=== PATIENT | female | born 1960 | race Caucasian/White ===

== ENCOUNTER 2024-02-17 18:05 | Observation (INO) | payer MEDICARE, SELFPAY ==
[2024-02-17 18:08] VITALS: BP 109/49; PULSE 72; RESP 16; TEMP 36.5; O2SAT 96; BMI 24.0
--- NOTE | 2024-02-17 18:15 | ECG_ITS ---
APPROVED REPORT Exam: Resting ECG HR:68 bpm ECG Measurements Heart Rate 68 AXES WY 150 P 60 QRSd 94 QRS 57 QT 462 T 57 QTc 480 Conclusion SINUS RHYTHM PROLONGED QT INTERVAL ABNORMAL ECG UNCONFIRMED REPORT Electronically signed by : Tashi Covington, 02/17/2024 23:27:57
--- NOTE | 2024-02-17 18:23 | XR_ITS ---
PROCEDURE INFORMATION: Exam: XR Chest Exam date and time: 02/17/2024 6:36 PM Age: 63 years old Clinical indication: Dyspnea TECHNIQUE: Imaging protocol: Radiologic exam of the chest. Views: 1 view. COMPARISON: No relevant prior studies available. FINDINGS: Lungs: Coarse interstitial lung markings likely chronic. Granulomatous changes. No consolidation. Pleural spaces: Unremarkable. No pleural effusion. No pneumothorax. Heart/Mediastinum: Unremarkable. No cardiomegaly. Bones/joints: Unremarkable. IMPRESSION: No acute findings.
[2024-02-17 18:26] VITALS: BP 109/59; PULSE 76; RESP 12; O2SAT 97
[2024-02-17 18:31] VITALS: BP 127/65; PULSE 72; RESP 15; O2SAT 96
--- NOTE | 2024-02-17 18:32 | HMH.EDGENADL ---
Discharge Plan Disposition Patient Disposition: Admitted Referrals Follow up/Referrals: Provider,Referral, [Primary Care Provider] - See instructions Clinical Impressions Clinical Impression: Acute hepatic encephalopathy, Acute hyponatremia, Acute hyperglycemia Instructions Patient Instructions: DI for Altered Mental Status Print Language Print Language: Bengali Discharge ED Provider: Vijaya Covington General Adult HPI General Chief complaint: Altered Mental Status Stated complaint: vitals are low,lifeless ,falling asleep Time Seen by Provider: 02/17/24 18:12 History of Present Illness HPI narrative: Patient is a 63-year-old with a 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 She was diagnosed several years ago but has been noncompliant with lactulose and rifaximin. She also has poorly controlled diabetes and was recently started on Ozempic but has not been taking any of her medications due to the cost of them. She presents today accompanied by her daughter for increasing lethargy and generalized weakness. Also her mental status is not what it normally is. No injuries to her head. She has a history of hepatic encephalopathy and her daughter states that this is a similar presentation. Patient also states she has had decreased urine output over the last several days. Accu-Chek prior to my evaluation was over 500. Related Data Allergies Allergy/AdvReac Type Severity Reaction Status Date / Time hydromorphone (From Dilaudid) Allergy Nausea Verified 02/17/24 18:37 NSAIDS (Non-Steroidal Allergy Nausea Verified 02/17/24 18:37 Anti-Inflamma [facility] Disclaimer: The information contained in this section may have been updated after the patient was seen, as this information can be updated by other users. Social History Smoking Status: Never smoker alcohol intake: never current occupational status: other Travel in the last 8 weeks: None ROS Obtained: Yes All systems reviewed & no additional complaints except as documented Physical Exam General General appearance: lethargic Respiratory Respiratory exam: Present normal lung sounds bilaterally and respiratory distress Cardiovascular Cardiovascular exam: Present regular rate; Absent normal rhythm Abdominal Exam Abdominal exam: Present soft; Absent distention or tenderness Neurological Exam Neurological exam: Present alert (The patient is alert but appears cognitively slowed otherwise nonfocal), oriented X3, CN II-XII intact and normal gait; Absent motor sensory deficit Medical Decision Making Medical Records Screening: Per USPSTF and CDC recommendations, given the prevalence of disease in our region, it is our hospital?s policy to screen for HIV and viral Hepatitis for all patients aged 18 and over and those with ongoing risk factors. Jose Inquiry Pt receiving controlled substance: No Vital Signs: 02/17/24 18:08 02/17/24 18:26 02/17/24 18:31 Temperature 97.7 F Temperature Source Oral Pulse Rate 76 72 Pulse Rate [Right] 72 Respiratory Rate 16 12 15 Blood Pressure 109/59 L 127/65 Blood Pressure [Right Arm] 109/49 L Blood Pressure Mean [Right Arm] 69 02 Sat by Pulse Oximetry 96 97 96 Oxygen Delivery Method Room Air Room Air Room Air Lab Data Lab results reviewed: Yes I reviewed the patient's lab results. Lab Results 02/17/24 18:15: WBC 7.3, RBC 4.28, Hgb 13.7, Hct 39.8, MCV 93.0, MCH 32.0 H, MCHC 34.4, RDW 12.2, Plt Count 184, MPV 11.1 H, Neut % (Auto) 48.4, Lymph % (Auto) 39.6, [place] % (Auto) 9.8 H, Eos % (Auto) 0.8, Baso % (Auto) 0.7, Neut # (Auto) 3.6, Lymph # (Auto) 2.9, [place] # (Auto) 0.7, Eos # (Auto) 0.1, Baso # (Auto) 0.1, PT 12.4, INR 1.12 H, Sodium 124 L, Potassium 4.4, Chloride 96 L, Carbon Dioxide 25, Anion Gap 7.4, BUN 17, Creatinine 1.00, Estimated Creat Clear 56, Estimated GFR 56 L, Est GFR ( Amer) 67, Glucose 590 H*, Calcium 8.5, Phosphorus 4.7 H, Magnesium 1.3 L, Total Bilirubin 0.7, AST 63 H, ALT 33, Alkaline Phosphatase 104, Ammonia 69 H, Troponin I < 0.01, Total Protein 6.2 L, Albumin 3.3 L, Globulin 2.9, Albumin/Globulin Ratio 1.1, TSH 1.87 02/17/24 18:38: VBG pH 7.39, VBG pCO2 41.4, VBG pO2 130.0 H, VBG HCO3 24.3, VBG Total CO2 25.5, VBG O2 Saturation 98.7 H, VBG Base Excess -0.8, VBG Lactic Acid 4.1 H 02/17/24 18:15 02/17/24 18:15 Orders (Tests/Meds): ED MEDICATIONS Discontinued Medications Generic Name Dose Route Start Last Admin Trade Name Della PRN Reason Stop Dose Admin Lactated Ringer's 1,000 mls @ 999 mls/hr 02/17/24 18:30 02/17/24 18:45 Lactated Ringer's 1000 Ml Bag IV 02/17/24 19:30 999 mls/hr .Q1H1M SID Administration ORDERS Category Date Time Status CXR --portable [XR chest portable] Stat Exams 02/17/24 18:23 Taken Ammonia Stat Lab 02/17/24 18:15 Completed CBC w/Auto Diff [Complete Blood Count Auto Diff] Stat Lab 02/17/24 18:15 Completed CMP [Comprehensive Metabolic Panel] Stat Lab 02/17/24 18:15 Completed Magnesium Stat Lab 02/17/24 18:15 Completed PT INR [Prothrombin Time INR] Stat Lab 02/17/24 18:15 Completed Phosphorous Stat Lab 02/17/24 18:15 Completed TSH [Thyroid Stimulating Hormone] Stat Lab 02/17/24 18:15 Completed Trop I [Troponin I] Stat Lab 02/17/24 18:15 Completed Troponin I Q3H Lab 02/17/24 21:30 Ordered Troponin I Q3H Lab 02/18/24 00:30 Ordered UA [Urinalysis and Microscopic] Stat Lab 02/17/24 18:25 Ordered UDS [Drug Screen,Urine] Stat Lab 02/17/24 18:25 Ordered Venous Blood Gas Stat RT 02/17/24 18:38 Completed Medical Decision Narrative: 63-year-old with history of hepatic encephalopathy and cirrhosis secondary to fatty liver disease presents today with generalized weakness differential includes hepatic encephalopathy, dehydration, acute renal insufficiency, hyperglycemia etc. Initial Accu-Chek was over 500 IV fluids being initiated. She has a nonfocal neurologic exam and no evidence of trauma will not get a CT scan of patient's head. Will reassess after this initial workup is complete. Chest x-ray performed which I personally interpreted which shows no acute cardiopulmonary emergency. Labs are significant for an elevated ammonia consistent with hepatic encephalopathy also has a low sodium of 124. Be worked up further inpatient and she has IV fluids that are being administered. She does seem to be hypovolemic at the moment. Lactic acid 4.1 this is likely secondary to both dehydration as well as type II/B lactic acidosis in the setting of cirrhosis. Patient has no signs or symptoms of SBP or variceal bleed. She also told one of our nurses that she has been noncompliant with any of her medications because of the cost particularly Ozempic but she is also not been taking her insulin. I spoke with Ramesh with hospital medicine agreed admit the patient for further evaluation and management. Critical Care Critical Care Time Critical Care Time: Yes Attestation: On 02/17/24, the high probability of a clinically significant, sudden or life threatening deterioration of the following system(s) required my full and direct attention, intervention and personal management. The time I documented below is in addition to time spent performing reported procedures but includes the following listed in this critical care notation. Total Time Total Critical Care Time: 35
[2024-02-17 18:38] LABS: Chloride 96 mmol/L (98-107)
[2024-02-17 18:39] LABS: Albumin Level 3.3 g/dl (3.5-5.0); Potassium 4.4 mmoL/L (3.5-5.1); Sodium 124 mmol/L (136-145)
[2024-02-17 18:39] LABS: VBG Base Excess -0.8 mmol/L (-2.4-2.3); VBG HCO3 24.3 mmol/L (23-30); VBG Oxygen Saturation 98.7 % (50-70); VBG PCO2 41.4 mmol/L (35-51); VBG PH 7.39 mmol/L (7.31-7.41); VBG Total CO2 25.5 mmol/L (23-27)
[2024-02-17 18:41] LABS: Alanine Aminotransferase 33 U/L (12-78); Aspartate Amino Transferase 63 U/L (14-36); Blood Urea Nitrogen 17 mg/dl (7-17); Creatinine Clearance Estimated 56 mL/min (50-200); Estimated Glomerular Filt Rate 56 ml/min (>60); GFR (African American) 67 ML/MIN (>60)
[2024-02-17 18:42] LABS: Lactate Venous 4.1 mmol/L (0.4-2.0)
[2024-02-17 18:42] LABS: Albumin/Globulin Ratio 1.1 (1.1-1.8); Alkaline Phosphatase 104 U/L (38-126); Anion Gap 7.4 mEq/L (5-15); Bilirubin,Total 0.7 mg/dl (0.2-1.3); Calcium 8.5 mg/dl (8.4-10.2); Carbon Dioxide 25 mmol/L (22.0-30.0); Globulin 2.9 g/dL (1.3-3.2); Phosphorous 4.7 mg/dl (2.5-4.5); Total Protein,Serum 6.2 g/dl (6.3-8.2)
[2024-02-17 18:43] LABS: Ammonia 69 umol/L (9-30); Glucose 590 mg/dl (74-100); Magnesium 1.3 mg/dl (1.6-2.3)
[2024-02-17 18:44] LABS: Hemoglobin 13.7 g/dL (12.2-16.2); Red Blood Count 4.28 M/mm3 (4.20-5.40); White Blood Count 7.3 K/mm3 (4.8-10.8)
--- NOTE | 2024-02-17 18:44 | PC.NURSE ---
glucose 590, MD aware
[2024-02-17 18:45] LABS: Basophils % 0.7 % (0.1-2.0); Eosinophils % 0.8 % (0.1-12.0); Hematocrit 39.8 % (37.0-47.0); Lymphocytes # 2.9 K/mm3 (0.7-4.5); Lymphocytes % 39.6 % (10-50); Mean Corpuscular HGB Conc 34.4 g/dL (31.8-35.4); Mean Platelet Volume 11.1 fl (7.4-10.4); Monocytes % 9.8 % (1.7-9.3); Neutrophils # 3.6 K/mm3 (1.8-7.8); Neutrophils % 48.4 % (37.0-80.0); Platelet Count 184 K/mm3 (142-424); Red Cell Distribution Width 12.2 % (11.5-17.5)
[2024-02-17] MEDS: LACTATED RINGERS 1000ML 1,000 ML 999 ML IV (18:45)
[2024-02-17 18:46] LABS: Basophils # 0.1 K/mm3 (0-0.2); Eosinophils # 0.1 K/mm3 (0.0-0.4); Monocytes # 0.7 K/mm3 (0.1-1.0)
[2024-02-17 18:50] LABS: INR 1.12 (0.9-1.1); Prothrombin Time 12.4 seconds (10.1-12.5)
[2024-02-17 18:57] LABS: Troponin I < 0.01 ng/ml (0.00-0.034)
[2024-02-17 19:13] LABS: Thyroid Stimulating Hormone 1.87 uIU/mL (0.465-4.68)
[2024-02-17 20:00] VITALS: BP 109/56; PULSE 61; O2SAT 94
--- NOTE | 2024-02-17 20:00 | PC.NURSE ---
Asked pt if she could give us a urine sample and she said she still is not able to at this time.
--- NOTE | 2024-02-17 20:01 | PC.NURSE ---
attempted to call report to 2nd floor
--- NOTE | 2024-02-17 20:05 | PC.NURSE ---
report called at this time
[2024-02-17 20:06] LABS: Hemoglobin A1C 11.8 % (4.0-6.0)
[2024-02-17 20:08] VITALS: BP 109/56; PULSE 62; RESP 18; TEMP 36.5; O2SAT 93
--- NOTE | 2024-02-17 20:13 | PC.NURSE ---
Patient arrived to floor via stretcher from ED at 20:10.
--- NOTE | 2024-02-17 20:17 | P.HP_ITS ---
History of Present Illness *Admission Date: 02/17/24 *Reason for visit:: Confusion *History of present illness: Ms. Rosales is a 63-year-old female with a past medical history of MASLD, DM, CKD. She presents to [facility] with her family due to confusion and lethargy that has been worsening over several days duration. She reports that she has not been taking her medications. She reports that she does not like the taste of Lactulose and has been taking Linzess instead. She also reports that she was prescribed Ozempic for her Diabetes, but cannot afford the medication. In the ER the patient underwent a CBC that was unremarkable. CMP showed a sodium of 124, glucose was 590 mg/dl with normal anion gap. Magnesium level was 1.3. Ammonia was elevated at 69. A1c was elevated at 11.8. The patient is admitted with initial impression: Acute Hepatic Encephalopathy, Acute Hyponatremia and Uncontrolled DM. [facility] Disclaimer: The information contained in this section may have been updated after the patient was seen, as this information can be updated by other users. Medical History (Updated 02/17/24 @ 20:26 by Ramesh Morrow DNP) Metabolic dysfunction-associated steatotic liver disease (MASLD) Hepatic encephalopathy Diabetes Social History Smoking Status: Never smoker alcohol intake: never current occupational status: other Travel in the last 8 weeks: None Have you lived/traveled outside [place] in past 30 days?: No Contact w/someone who lives/traveled outside [place] past 30 days?: No Exposure to someone with infectious disease in past 14 days?: No Do you have a fever (greater than 100.4 F or 38 C)?: No Have you tested positive for COVID-19: No Exposed to someone with COVID-19 in past 14 days?: No Do you have a sore throat?: No Do you have a cough?: No Do you have any weakness?: Yes Do you have any diarrhea?: No Are you experiencing any unusual bleeding?: No Do you have any muscle aches/pain?: No Do you have any abdominal pain?: No Are you experiencing loss of taste or smell?: No Other Medical History Have you received the Flu Vaccine for this season: No Have you received the Pneumonia Vaccine: No Review of Systems Review of Systems Review of systems:: unable to obtain Review of systems (narrative): Patient confused Meds Home Medications and Allergies New Prescriptions to Start Prescriptions: Allergies Allergy/AdvReac Type Severity Reaction Status Date / Time hydromorphone (From Dilaudid) Allergy Nausea Verified 02/17/24 18:37 NSAIDS (Non-Steroidal Allergy Nausea Verified 02/17/24 18:37 Anti-Inflamma Exam Data for Last 24 hours Vital signs and Labs for Last 24 Hours: Temp Pulse Resp BP Pulse Ox O2 Del Method 97.7 F 62 18 109/56 L 94 L Room Air 02/17/24 20:08 02/17/24 20:08 02/17/24 20:08 02/17/24 20:08 02/17/24 20:00 02/17/24 20:08 Laboratory Results - last 24 hr 02/17/24 18:15: WBC 7.3, RBC 4.28, Hgb 13.7, Hct 39.8, MCV 93.0, MCH 32.0 H, MCHC 34.4, RDW 12.2, Plt Count 184, MPV 11.1 H, Neut % (Auto) 48.4, Lymph % (Auto) 39.6, [place] % (Auto) 9.8 H, Eos % (Auto) 0.8, Baso % (Auto) 0.7, Neut # (Auto) 3.6, Lymph # (Auto) 2.9, [place] # (Auto) 0.7, Eos # (Auto) 0.1, Baso # (Auto) 0.1, PT 12.4, INR 1.12 H, Sodium 124 L, Potassium 4.4, Chloride 96 L, Carbon Dioxide 25, Anion Gap 7.4, BUN 17, Creatinine 1.00, Estimated Creat Clear 56, Estimated GFR 56 L, Est GFR ( Amer) 67, Glucose 590 H*, Hemoglobin A1c 11.8 H, Calcium 8.5, Phosphorus 4.7 H, Magnesium 1.3 L, Total Bilirubin 0.7, AST 63 H, ALT 33, Alkaline Phosphatase 104, Ammonia 69 H, Troponin I < 0.01, Total Protein 6.2 L, Albumin 3.3 L, Globulin 2.9, Albumin/Globulin Ratio 1.1, TSH 1.87 02/17/24 18:38: VBG pH 7.39, VBG pCO2 41.4, VBG pO2 130.0 H, VBG HCO3 24.3, VBG Total CO2 25.5, VBG O2 Saturation 98.7 H, VBG Base Excess -0.8, VBG Lactic Acid 4.1 H I & O for Last 24 hours: Intake & Output 02/14/24 02/15/24 02/16/24 02/17/24 23:59 23:59 23:59 23:59 Weight 63.503 kg Constitutional Constitutional: no acute distress *Routine HEENT Exam Head: Present normocephalic Eye: Present EOMI and PERRL ENT: Present mucous membranes dry *Routine Neck Exam Neck: Present supple and full ROM *Routine Respiratory Exam Respiratory: Present CTA bilaterally *Routine Cardiovascular Exam Cardiovascular: Present RRR and Normal S1 *Routine Abdominal Exam Abdominal: Present soft and normoactive bowel sounds *Routine Rectal Exam Rectal:: deferred *Routine Genitalia Exam Genitalia:: deferred *Routine Extremities Exam Extremities: Present full ROM *Routine Skin Exam Skin: Present intact *Routine Neurological Exam Neurological: Present alert and oriented X3 Assessment and Plan *Assessment and plan (1) Hepatic encephalopathy: Status: Acute Category: Medical Code(s): K76.82 - Hepatic encephalopathy (2) Acute hyponatremia: Status: Acute Category: Medical Code(s): E87.1 - Hypo-osmolality and hyponatremia (3) Uncontrolled diabetes mellitus: Status: Acute Category: Medical Plan 63-year-old female with past medical history of MASLD, DM, CKD who presents due to confusion, has not been taking her medications for sometime due to cost - Hepatic Encephalopathy Reports a history of MASLD Was suppose to be on Lactulose and Rifaxamin Reports was not taking Lactulose due to not liking taste, reports she was informed by her Provider that she could take Linzess Ammonia level 69 associated with confusion Discussed need to take medications, started Will check urinalysis - Acute Hyponatremia Admits to not eating or drinking well Placed on iv fluids Monitoring sodium level Checking urine sodium, serum osmolality and urine osmolality Treat as indicated - Uncontrolled Diabetes Mellitus A1c 11.8 Reports was prescribed Ozempic, but reports cannot afford Started on Sliding Scale, will need teaching for insulins after no longer encephalopathic - Hypomagnesemia Monitoring and replacing DVT ppx Heparin sub q
[2024-02-17 20:43] VITALS: BP 133/66; PULSE 65; RESP 16; TEMP 36.5; O2SAT 98
[2024-02-17] MEDS: MAGNESIUM SULFATE IN WATER 2 GM/50 ML PIGGYBACK IV (20:56)
[2024-02-17] MEDS: humaLOG 100 UNITS/ML 10ML VIAL (SSI) SUBCUT (20:56)
[2024-02-17] MEDS: 0.9 % SODIUM CHLORIDE 1000ML 1,000 ML 75 ML IV (20:56)
[2024-02-17] MEDS: LACTULOSE 20GM/30ML UDC 10 GM RC (20:57)
[2024-02-17 21:15] LABS: POC Glucose,Bedside 468 (70-110)
[2024-02-17 22:41] LABS: Reflex Lactic Add Lactic Reflex
[2024-02-17 22:43] LABS: Troponin I < 0.01 ng/ml (0.00-0.034)
[2024-02-17 23:42] LABS: Lactic Acid Follow Up (RFLX 1) 2.7 mmol/L (0.7-2.1)
[2024-02-18 01:25] LABS: Reflex Lactic (2 hrs) Add Lactic Reflex
[2024-02-18 01:48] LABS: Sodium 135 mmol/L (136-145)
[2024-02-18 01:51] LABS: Lactic Acid Follow up (RFLX 2) 2.3 mmol/L (0.7-2.1)
[2024-02-18 02:05] LABS: Troponin I < 0.01 ng/ml (0.00-0.034)
[2024-02-18 04:00] VITALS: BP 122/55; PULSE 71; RESP 16; TEMP 36.9; O2SAT 97; BMI 23.1
--- NOTE | 2024-02-18 05:20 | PC.NURSE ---
Patient has had a good night, She has been able to rest on and off. Patient is alert to person, place, and time. But does get confused on why she is here. She has been up to the bathroom a couple times and has been steady on her feet. no complaints through the night
[2024-02-18] MEDS: humaLOG 100 UNITS/ML 10ML VIAL (SSI) SUBCUT ×2 (05:36→11:20)
[2024-02-18 05:39] LABS: POC Glucose,Bedside 154 (70-110)
[2024-02-18 07:39] VITALS: BP 156/86; PULSE 76; RESP 18; TEMP 37.3; O2SAT 97
--- NOTE | 2024-02-18 08:29 | HMH.PHAINT1 ---
Pharmacy Intervention Comments: Home medication list verified using list from outpatient pharmacy and pt interview
[2024-02-18 08:32] LABS: Chloride 101 mmol/L (98-107); Sodium 133 mmol/L (136-145)
[2024-02-18 08:33] LABS: Potassium 3.3 mmoL/L (3.5-5.1)
[2024-02-18 08:35] LABS: Blood Urea Nitrogen 12 mg/dl (7-17); Creatinine Clearance Estimated 54 mL/min (50-200); Estimated Glomerular Filt Rate 100 ml/min (>60); GFR (African American) 121 ML/MIN (>60)
[2024-02-18 08:36] LABS: Anion Gap 3.3 mEq/L (5-15); Calcium 8.6 mg/dl (8.4-10.2); Carbon Dioxide 32 mmol/L (22.0-30.0); Glucose 211 mg/dl (74-100)
[2024-02-18 08:51] LABS: Hemoglobin 14.5 g/dL (12.2-16.2); Red Blood Count 4.61 M/mm3 (4.20-5.40); White Blood Count 7.5 K/mm3 (4.8-10.8)
[2024-02-18 08:52] LABS: Basophils # 0.1 K/mm3 (0-0.2); Basophils % 0.7 % (0.1-2.0); Eosinophils # 0.1 K/mm3 (0.0-0.4); Eosinophils % 1.6 % (0.1-12.0); Hematocrit 42.3 % (37.0-47.0); Lymphocytes # 3.5 K/mm3 (0.7-4.5); Lymphocytes % 46.7 % (10-50); Mean Corpuscular HGB Conc 34.3 g/dL (31.8-35.4); Mean Corpuscular Hemoglobin 31.5 pg (27.0-31.2); Mean Corpuscular Volume 91.8 fl (81-99); Mean Platelet Volume 10.8 fl (7.4-10.4); Monocytes # 0.8 K/mm3 (0.1-1.0); Monocytes % 10.6 % (1.7-9.3); Neutrophils % 40.1 % (37.0-80.0); Platelet Count 204 K/mm3 (142-424); Red Cell Distribution Width 12.3 % (11.5-17.5)
[2024-02-18 09:23] LABS: Magnesium 1.5 mg/dl (1.6-2.3)
--- NOTE | 2024-02-18 10:48 | HMH.PTEV ---
Physical Therapy Evaluation Rehab PT IP Evaluation Start: 02/18/24 10:09 Freq: ONCE Status: Active Protocol: Document 02/18/24 10:45 UZAIR (Rec: 02/18/24 10:48 UZAIR [id number]) Subjective/History History History 63-year-old female with a past medical history of MASLD, DM, CKD. A1c of 11.8% upon admission. She reports she lives with her , has a ramp to enter the home, and is generally independent with all mobility at baseline. She does have a RW for use at home if needed. Subjective Subjective She presents with significant neuropathy throughout B lower legs from ankle distally. She reports feeling much better and readily agrees to mobility assessment. New diagnosis of cancer in past 12 No months? Rehab PT IP Eval Objective Appearance Patient Behavior Appropriate Patient Orientation Person,Place,Time Difficulty following instructions none Speech Pattern Clear Ambulation Patient Able to Ambulate Yes Ambulation Observation IP General Gait Pattern Observation Wide Based Gait Ambulation Distance (feet) 100 Ambulation Assistive Device None Ambulation Ability Independent Balance Ability to Arise Able, uses arms to help Sitting Balance Steady, safe Standing Balance Steady, wide stance Dynamic Sitting Balance Ability Good Dynamic Standing Balance Ability Fair Transfers Bed Transfer Ability Independent Chair Transfer Ability Independent Sit to Stand Bed Transfer Ability Independent Sit to Stand Chair Transfer Ability Independent Rehab PT IP prob,goals,plan Problems Date of Evaluation: 02/18/24 Discharge Plan PT Discharge Plan Pt is currently at baseline for all mobility and has no inpatient therapy needs. She is appropriate for return to home once she is medically stable for d/c. Eval Complexity Eval Charge Codes 82872 - High Complexity PHYSICIAN CERTIFICATION: I certify the specified therapy services for Linh Rosales are required, authorized, and reviewed every 30 days.
[2024-02-18] MEDS: LACTULOSE 20GM/30ML UDC 20 GM PO (11:08)
[2024-02-18] MEDS: POLYETHYLENE GLYCOL 3350 17 GM PACKET PO (11:08)
[2024-02-18] MEDS: METFORMIN 500MG TABLET 1000 MG PO (11:08)
[2024-02-18] MEDS: DAPAGLIFLOZIN PROPANEDIOL 10 MG TABLET PO (11:08)
--- NOTE | 2024-02-18 11:48 | EXP.DC.SUM ---
General Admission date:: 02/17/24 HPI HPI HPI: Ms. Rosales is a 63-year-old female with a past medical history of MASLD, DM, CKD. She presents to [facility] with her family due to confusion and lethargy that has been worsening over several days duration. She reports that she has not been taking her medications. She reports that she does not like the taste of Lactulose and has been taking Linzess instead. She also reports that she was prescribed Ozempic for her Diabetes, but cannot afford the medication. In the ER the patient underwent a CBC that was unremarkable. CMP showed a sodium of 124, glucose was 590 mg/dl with normal anion gap. Magnesium level was 1.3. Ammonia was elevated at 69. A1c was elevated at 11.8. The patient is admitted with initial impression: Acute Hepatic Encephalopathy, Acute Hyponatremia and Uncontrolled DM. Hospital Course Hospital Course Hospital Course: Linh Rosales is a 63-year-old female with a medical history significant for NAFLD, esophageal varices, previous alcohol use disorder, type 2 diabetes who presents with confusion and suspected hepatic encephalopathy. #Hepatic encephalopathy #Metabolic associated fatty liver disease/NAFLD #Esophageal varices ? Patient reportedly has a history of NAFLD, but also with esophageal varices. Previously followed with Dr. Franks, or head of maintenance. ? Presented with worsening confusion, falls. ? Initial ammonia level elevated to 69. ? Clinically improved with lactulose, rifaximin. Patient is currently alert and oriented x 3. ? Patient has previously had issues taste of lactulose, but is willing to restart it. ? Also has had issues affording rifaximin and other medications. ? PT evaluated patient, did not recommend rehab needs. ? Discharged with lactulose 20 mg twice daily, rifaximin 550 mg twice daily. She will follow-up with GI to further discuss cost of rifaximin. ? Resume home metoprolol succinate 100 mg for esophageal varices. ? Referred to gastroenterology. #Uncontrolled type 2 diabetes ? Hemoglobin A1c 11.8%. ? Has not been taking her medications due to cost and toleration. ? Had previously been on metformin 1000 mg twice daily, but was decreased to 500 mg. ? Discharged with Tresiba 15 units nightly, Jardiance 10 mg daily, metformin 1000 mg twice daily. Pharmacy was contacted and patient's insurance will cover these medications. ? Will follow-up with the PCP for further evaluation and management. #Anxiety/depression ? Sister recently a few months ago and patient has been having a hard time with this. ? Patient has social support with sons and [id number]. ? Resume home fluoxetine. ? Advised patient to discuss Wellbutrin with her PCP as fluoxetine has not been working that well. #GERD ? Resume home PPI. Exam Data for Last 24 hours Vital signs and Labs for Last 24 Hours: Temp Pulse Resp BP Pulse Ox O2 Del Method 99.2 F 76 18 156/86 H 97 Room Air 02/18/24 07:39 02/18/24 07:39 02/18/24 07:39 02/18/24 07:39 02/18/24 07:39 02/18/24 09:00 Laboratory Results - last 24 hr 02/17/24 18:15: WBC 7.3, RBC 4.28, Hgb 13.7, Hct 39.8, MCV 93.0, MCH 32.0 H, MCHC 34.4, RDW 12.2, Plt Count 184, MPV 11.1 H, Neut % (Auto) 48.4, Lymph % (Auto) 39.6, Phillips % (Auto) 9.8 H, Eos % (Auto) 0.8, Baso % (Auto) 0.7, Neut # (Auto) 3.6, Lymph # (Auto) 2.9, Phillips # (Auto) 0.7, Eos # (Auto) 0.1, Baso # (Auto) 0.1, PT 12.4, INR 1.12 H, Sodium 124 L, Potassium 4.4, Chloride 96 L, Carbon Dioxide 25, Anion Gap 7.4, BUN 17, Creatinine 1.00, Estimated Creat Clear 56, Estimated GFR 56 L, Est GFR ( Amer) 67, Glucose 590 H*, Hemoglobin A1c 11.8 H, Calcium 8.5, Phosphorus 4.7 H, Magnesium 1.3 L, Total Bilirubin 0.7, AST 63 H, ALT 33, Alkaline Phosphatase 104, Ammonia 69 H, Troponin I < 0.01, Total Protein 6.2 L, Albumin 3.3 L, Globulin 2.9, Albumin/Globulin Ratio 1.1, TSH 1.87 02/17/24 18:38: VBG pH 7.39, VBG pCO2 41.4, VBG pO2 130.0 H, VBG HCO3 24.3, VBG Total CO2 25.5, VBG O2 Saturation 98.7 H, VBG Base Excess -0.8, VBG Lactic Acid 4.1 H 02/17/24 20:48: POC Glucose 468 H* 02/17/24 22:00: Troponin I < 0.01 02/17/24 23:10: Lactate 2.7 H 02/18/24 01:35: Sodium 135 L, Lactate 2.3 H, Troponin I < 0.01 02/18/24 05:28: POC Glucose 154 H 02/18/24 08:12: WBC 7.5, RBC 4.61, Hgb 14.5, Hct 42.3, MCV 91.8, MCH 31.5 H, MCHC 34.3, RDW 12.3, Plt Count 204, MPV 10.8 H, Neut % (Auto) 40.1, Lymph % (Auto) 46.7, Phillips % (Auto) 10.6 H, Eos % (Auto) 1.6, Baso % (Auto) 0.7, Neut # (Auto) 3.0, Lymph # (Auto) 3.5, Phillips # (Auto) 0.8, Eos # (Auto) 0.1, Baso # (Auto) 0.1, Sodium 133 L, Potassium 3.3 L D, Chloride 101, Carbon Dioxide 32 H, Anion Gap 3.3 L, BUN 12 D, Creatinine 0.60 D, Estimated Creat Clear 54, Estimated GFR 100, Est GFR ( Amer) 121 D, Glucose 211 H D, Calcium 8.6, Magnesium 1.5 L D I & O for Last 24 hours: Intake & Output 02/15/24 02/16/24 02/17/24 02/18/24 23:59 23:59 23:59 23:59 Intake Total 535 / 535 Output Total 0 / 0 Balance 535 / 535 Weight 63.503 kg 61.416 kg Constitutional Constitutional: no acute distress *Routine HEENT Exam Head: Present normocephalic Eye: Present EOMI and PERRL ENT: Present mucous membranes moist *Routine Neck Exam Neck: Present supple; Absent lymphadenopathy *Routine Respiratory Exam Respiratory: Present CTA bilaterally *Routine Cardiovascular Exam Cardiovascular: Present RRR *Routine Abdominal Exam Abdominal: Present soft and normoactive bowel sounds; Absent tenderness *Routine Extremities Exam Extremities: Absent cyanosis, clubbing or edema *Routine Skin Exam Skin: Present warm; Absent rash *Routine Neurological Exam Neurological: Present alert and oriented X3 Results Data Completed and Pending Labs on day of discharge: Labs from last 24 hours 02/18/24 02/18/24 02/18/24 08:12 05:28 01:35 WBC 7.5 RBC 4.61 Hgb 14.5 Hct 42.3 MCV 91.8 MCH 31.5 H MCHC 34.3 RDW 12.3 Plt Count 204 MPV 10.8 H Neut % (Auto) 40.1 Lymph % (Auto) 46.7 Phillips % (Auto) 10.6 H Eos % (Auto) 1.6 Baso % (Auto) 0.7 Neut # (Auto) 3.0 Lymph # (Auto) 3.5 Phillips # (Auto) 0.8 Eos # (Auto) 0.1 Baso # (Auto) 0.1 PT INR VBG pH VBG pCO2 VBG pO2 VBG HCO3 VBG Total CO2 VBG O2 Saturation VBG Base Excess VBG Lactic Acid Sodium 133 L 135 L Potassium 3.3 L D Chloride 101 Carbon Dioxide 32 H Anion Gap 3.3 L BUN 12 D Creatinine 0.60 D Estimated Creat Clear 54 Estimated GFR 100 Est GFR ( Amer) 121 D Glucose 211 H D POC Glucose 154 H Hemoglobin A1c Lactate 2.3 H Calcium 8.6 Phosphorus Magnesium 1.5 L D Total Bilirubin AST ALT Alkaline Phosphatase Ammonia Troponin I < 0.01 Total Protein Albumin Globulin Albumin/Globulin Ratio TSH 02/17/24 02/17/24 02/17/24 23:10 22:00 20:48 WBC RBC Hgb Hct MCV MCH MCHC RDW Plt Count MPV Neut % (Auto) Lymph % (Auto) Phillips % (Auto) Eos % (Auto) Baso % (Auto) Neut # (Auto) Lymph # (Auto) Phillips # (Auto) Eos # (Auto) Baso # (Auto) PT INR VBG pH VBG pCO2 VBG pO2 VBG HCO3 VBG Total CO2 VBG O2 Saturation VBG Base Excess VBG Lactic Acid Sodium Potassium Chloride Carbon Dioxide Anion Gap BUN Creatinine Estimated Creat Clear Estimated GFR Est GFR ( Amer) Glucose POC Glucose 468 H* Hemoglobin A1c Lactate 2.7 H Calcium Phosphorus Magnesium Total Bilirubin AST ALT Alkaline Phosphatase Ammonia Troponin I < 0.01 Total Protein Albumin Globulin Albumin/Globulin Ratio TSH 02/17/24 02/17/24 18:38 18:15 WBC 7.3 RBC 4.28 Hgb 13.7 Hct 39.8 MCV 93.0 MCH 32.0 H MCHC 34.4 RDW 12.2 Plt Count 184 MPV 11.1 H Neut % (Auto) 48.4 Lymph % (Auto) 39.6 Phillips % (Auto) 9.8 H Eos % (Auto) 0.8 Baso % (Auto) 0.7 Neut # (Auto) 3.6 Lymph # (Auto) 2.9 Phillips # (Auto) 0.7 Eos # (Auto) 0.1 Baso # (Auto) 0.1 PT 12.4 INR 1.12 H VBG pH 7.39 VBG pCO2 41.4 VBG pO2 130.0 H VBG HCO3 24.3 VBG Total CO2 25.5 VBG O2 Saturation 98.7 H VBG Base Excess -0.8 VBG Lactic Acid 4.1 H Sodium 124 L Potassium 4.4 Chloride 96 L Carbon Dioxide 25 Anion Gap 7.4 BUN 17 Creatinine 1.00 Estimated Creat Clear 56 Estimated GFR 56 L Est GFR ( Amer) 67 Glucose 590 H* POC Glucose Hemoglobin A1c 11.8 H Lactate Calcium 8.5 Phosphorus 4.7 H Magnesium 1.3 L Total Bilirubin 0.7 AST 63 H ALT 33 Alkaline Phosphatase 104 Ammonia 69 H Troponin I < 0.01 Total Protein 6.2 L Albumin 3.3 L Globulin 2.9 Albumin/Globulin Ratio 1.1 TSH 1.87 DS: Diagnosis Discharge Diagnosis (1) Hepatic encephalopathy: Status: Acute Code(s): K76.82 - Hepatic encephalopathy (2) Acute hyponatremia: Status: Acute Code(s): E87.1 - Hypo-osmolality and hyponatremia (3) Uncontrolled diabetes mellitus: Status: Acute Meds Home Medications and Allergies Home Medications ?Medication ?Instructions ?Recorded ?Confirmed ?Type empagliflozin 10 mg tablet 10 mg PO DAILY #30 tabs 02/18/24 Rx (Jardiance) insulin degludec 100 unit/mL (3 15 unit (0.15 mL) SQ HS #15 mL 02/18/24 Rx mL) subcutaneous pen (Tresiba FlexTouch U-100 insulin) lactulose 20 gram/30 mL oral 20 g (30 mL) PO BID 30 days #1,800 02/18/24 Rx solution mL metformin 500 mg tablet 1,000 mg (2 x 500 mg) PO BIDWMEAL 02/18/24 Rx 30 days #120 tabs polyethylene glycol 3350 17 gram 17 g PO DAILY 30 days #30 ea 02/18/24 Rx oral powder packet (HealthyLax) rifaximin 550 mg tablet (Xifaxan) 550 mg PO BID 30 days #60 tabs 02/18/24 Rx simvastatin 20 mg tablet 20 mg PO HS 02/18/24 02/18/24 History New Prescriptions to Start Prescriptions: empagliflozin [Jardiance] Suzette,Anuj insulin degludec [Tresiba FlexTouch U-100] Suzette,Anuj lactulose Suzette,Anuj metformin Suzette,Anuj polyethylene glycol 3350 [HealthyLax] Suzette,Anuj rifaximin [Xifaxan] Suzette,Anuj Allergies Allergy/AdvReac Type Severity Reaction Status Date / Time hydromorphone (From Dilaudid) Allergy Nausea Verified 02/17/24 18:37 NSAIDS (Non-Steroidal Allergy Nausea Verified 02/17/24 18:37 Anti-Inflamma Discharge Plan Disposition Patient Disposition: Home, Self-Care Condition: Fair Follow up Plan Follow up with: Beau Franks II, MD [Staff Physician] - Enter time for follow up (please call for appointment) Prescriptions/Medication Reconciliation: New metformin 500 mg Tablet 1,000 mg PO BIDWMEAL 30 Days Qty: 120 0RF polyethylene glycol 3350 [HealthyLax] 17 gram Powder In Packet 17 g PO DAILY 30 Days Qty: 30 0RF Xifaxan 550 mg Tablet 550 mg PO BID 30 Days Qty: 60 0RF lactulose 20 gram/30 mL Solution 20 g PO BID 30 Days Qty: 1800 0RF Jardiance 10 mg tablet 10 mg PO DAILY Qty: 30 0RF insulin degludec [Tresiba FlexTouch U-100] 100 unit/mL (3 mL) insulin pen 15 unit SQ HS Qty: 15 1RF Continued simvastatin 20 mg tablet 20 mg PO HS Patient Comments: TAKE 1 TABLET BY MOUTH DAILY Discontinued omeprazole 40 mg capsule,delayed release(DR/EC) 40 mg PO HS Problem Reconciliation Problems Reviewed?: Yes Patient Discharge Instructions Patient Instructions: Hepatic Encephalopathy, DI for Hyponatremia, DI for Hyperglycemia -- Adult Print Language: Filipino Providers Primary Care Provider: Provider,Referral Admit Provider: Anuj Bradford Attending Provider: Anuj Bradford
[2024-02-18] MEDS: MAGNESIUM OXIDE 400MG TABLET 400 MG PO (13:00)
[2024-02-18] MEDS: POTASSIUM CHLORIDE 20MEQ TAB 40 MEQ PO (13:00)
--- NOTE | 2024-02-19 10:37 | SW/DCPLANNER ---
Spoke with patients son on the phone. Patient's son stated that patient is doing well. Patient's son stated that they organized her medicine for she wont get confused on when and what to take. Patient's son stated that they are aware of the upcoming appointments and that his sister justin is going to call to schedule the visit wit Dr Franks for his mom. Patient's son state that he has no concerns or questions at this time. Cedric Alvarez
== END 2024-02-18 13:19 | disposition home or self-care (01) ==
LOC: ER 19:39 → 2ND 20:14
PROVIDERS: Nurse Practitioner Family; Admitting Provider Student in an Organized Health Care Education/Training Program; Emergency Provider Student in an Organized Health Care Education/Training Program; Visit Provider Student in an Organized Health Care Education/Training Program
DX: E11.65 Type 2 diabetes mellitus with hyperglycemia (principal); K76.82 Hepatic encephalopathy; E87.1 Hypo-osmolality and hyponatremia; T38.3X6A Underdosing of insulin and oral hypoglycemic [antidiabetic] drugs, initial encounter; Z91.141 Patient's other noncompliance with medication regimen due to financial hardship; T47.3X6A Underdosing of saline and osmotic laxatives, initial encounter; T36.6X6A Underdosing of rifampicins, initial encounter; Z91.128 Patient's intentional underdosing of medication regimen for other reason; K75.89 Other specified inflammatory liver diseases; N18.9 Chronic kidney disease, unspecified; Z79.899 Other long term (current) drug therapy; Z79.84 Long term (current) use of oral hypoglycemic drugs
CPT/HCPCS: 36415; 71045; 80048; 80053; 82140; 82803; 82962; 83036; 83605; 83735; 84100; 84295; 84443; 84484; 85025; 85610; 93005; 97163; 99291; G0378; J3475; J7030; J7120

== ENCOUNTER 2024-04-15 16:48 | Emergency (ER) | payer MEDICARE, SELFPAY ==
[2024-04-15] VITALS (8 sets, daily range): BP systolic 151–181; BP diastolic 83–86; PULSE 93–100; RESP 13–20; TEMP 36.8–37; O2SAT 96–100; BMI 21.9
[2024-04-15 18:21] LABS: Basophils % 0.5 % (0.1-2.0); Eosinophils # 0.1 K/mm3 (0.0-0.4); Hematocrit 46.4 % (37.0-47.0); Hemoglobin 16.3 g/dL (12.2-16.2); Lymphocytes # 3.2 K/mm3 (0.7-4.5); Lymphocytes % 39.3 % (10-50); Mean Corpuscular HGB Conc 35.1 g/dL (31.8-35.4); Mean Corpuscular Hemoglobin 31.9 pg (27.0-31.2); Mean Corpuscular Volume 90.8 fl (81-99); Mean Platelet Volume 10.5 fl (7.4-10.4); Monocytes # 0.7 K/mm3 (0.1-1.0); Monocytes % 8.7 % (1.7-9.3); Neutrophils # 4.1 K/mm3 (1.8-7.8); Neutrophils % 50.1 % (37.0-80.0); Platelet Count 237 K/mm3 (142-424); Red Blood Count 5.11 M/mm3 (4.20-5.40); White Blood Count 8.1 K/mm3 (4.8-10.8)
[2024-04-15 18:24] LABS: Microscopic, Urine URINE MICROSCOPIC (MICROSCOPIC)
[2024-04-15 18:25] LABS: Albumin Level 4.3 g/dl (3.5-5.0); Chloride 100 mmol/L (98-107); Potassium 4.3 mmoL/L (3.5-5.1); Sodium 138 mmol/L (136-145)
[2024-04-15 18:28] LABS: Alanine Aminotransferase 35 U/L (12-78); Albumin/Globulin Ratio 1.2 (1.1-1.8); Alkaline Phosphatase 175 U/L (38-126); Anion Gap 13.3 mEq/L (5-15); Aspartate Amino Transferase 64 U/L (14-36); Bilirubin,Total 0.5 mg/dl (0.2-1.3); Blood Urea Nitrogen 12 mg/dl (7-17); Carbon Dioxide 29 mmol/L (22.0-30.0); Creatinine Clearance Estimated 53 mL/min (50-200); Estimated Glomerular Filt Rate 100 ml/min (>60); GFR (African American) 121 ML/MIN (>60); Globulin 3.5 g/dL (1.3-3.2); Total Protein,Serum 7.8 g/dl (6.3-8.2)
[2024-04-15 18:29] LABS: Calcium 9.2 mg/dl (8.4-10.2); Glucose 170 mg/dl (74-100)
[2024-04-15 18:56] LABS: Ammonia 38 umol/L (9-30)
--- NOTE | 2024-04-15 19:09 | ED_ITS ---
Discharge Plan Disposition Patient Disposition: Home, Self-Care Chief Complaint: Abdominal Pain Prescriptions Prescriptions: No Action simvastatin 20 mg tablet 20 mg PO HS Patient Comments: TAKE 1 TABLET BY MOUTH DAILY metformin 500 mg Tablet 1,000 mg PO BIDWMEAL 30 Days Qty: 120 0RF polyethylene glycol 3350 [HealthyLax] 17 gram Powder In Packet 17 g PO DAILY 30 Days Qty: 30 0RF Xifaxan 550 mg Tablet 550 mg PO BID 30 Days Qty: 60 0RF lactulose 20 gram/30 mL Solution 20 g PO BID 30 Days Qty: 1800 0RF Jardiance 10 mg tablet 10 mg PO DAILY Qty: 30 0RF insulin degludec [Tresiba FlexTouch U-100] 100 unit/mL (3 mL) insulin pen 15 unit SQ HS Qty: 15 1RF Referrals Follow up/Referrals: Makenzie Valdez PA [Primary Care Provider] - See instructions Activity Restrictions/Add. Instructions Additional Instructions/Restrictions: Call your family doctor to establish care for this visit to the emergency department and schedule follow-up within 48 hours to ensure improvement. If you have any worsening of your condition or any other concerning signs or symptoms, return to the emergency department or your primary care doctor for further evaluation. Continue following up with gastroenterology as well. MELD score today was 8, meaning incredibly low risk of 90-day significant adverse outcome from liver disease. AST 64/ALT 35/bilirubin 0.5/alkaline phosphatase 175, ammonia 38 today. These will be helpful when seeing Dr. Franks. Daily multivitamin as well as increasing protein intake ca help with worsening weakness. Clinical Impressions Clinical Impression: Generalized weakness, Abdominal pain, Decreased appetite Instructions Patient Instructions: DI for Acute Abdominal Pain Print Language Print Language: Setswana Discharge ED Provider: Chepe Gomes General Adult HPI General Chief complaint: Abdominal Pain Stated complaint: Body aches,nauseated,poor appitite Time Seen by Provider: 04/15/24 18:22 Mode of Arrival: Ambulatory Source of Information: Patient and Relative Limitations: No Limitations Description of Symptoms (Recalled from ER Triage Doc. by RN): pt is here for abd pain n/v for a few days and generalized weakness, pt has hx of dm and gonzalez and was hospitalized back here in january History of Present Illness HPI narrative: Please note that above description of symptoms, in this electronic medical record under categorization of recalled from ER triage doctor by RN are reflective of an initial nursing assessment, however, is not reflective of my full history and physical exam that was personally taken and clarified. Consequentially, this preceding description of symptoms, which may include the patient's categorized chief complaint in the EMR, do not reflect my personal clinical impression, and the ultimate description of history of present illness and patient stated complaints should be deferred to this section of the note. Unless stated otherwise or congruent with this section of the note, additional signs, symptoms, or incongruence should be interpreted as inaccurate with my clinical impression. Related Data Home Medications ?Medication ?Instructions ?Recorded ?Confirmed simvastatin 20 mg tablet 20 mg PO HS 02/18/24 04/15/24 Previous Rx's ?Medication ?Instructions ?Recorded empagliflozin 10 mg tablet 10 mg PO DAILY #30 tabs 02/18/24 (Jardiance) insulin degludec 100 unit/mL (3 15 unit (0.15 mL) SQ HS #15 mL 02/18/24 mL) subcutaneous pen (Tresiba FlexTouch U-100 insulin) lactulose 20 gram/30 mL oral 20 g (30 mL) PO BID 30 days #1,800 02/18/24 solution mL metformin 500 mg tablet 1,000 mg (2 x 500 mg) PO BIDWMEAL 02/18/24 30 days #120 tabs polyethylene glycol 3350 17 gram 17 g PO DAILY 30 days #30 ea 02/18/24 oral powder packet (HealthyLax) rifaximin 550 mg tablet (Xifaxan) 550 mg PO BID 30 days #60 tabs 02/18/24 Allergies Allergy/AdvReac Type Severity Reaction Status Date / Time hydromorphone (From Dilaudid) Allergy Nausea Verified 04/15/24 19:10 NSAIDS (Non-Steroidal Allergy Nausea Verified 04/15/24 19:10 Anti-Inflamma [facility] Disclaimer: The information contained in this section may have been updated after the patient was seen, as this information can be updated by other users. Medical History (Updated 04/15/24 @ 20:52 by Chepe Gomes MD) Metabolic dysfunction-associated steatotic liver disease (MASLD) Hepatic encephalopathy Diabetes Family History (Updated 04/15/24 @ 19:09 by Alex Gutierrez RN) Other No significant family history Social History Smoking Status: Never smoker alcohol intake: never current occupational status: other Travel in the last 8 weeks: None Have you lived/traveled outside [place] in past 30 days?: No Contact w/someone who lives/traveled outside US past 30 days?: No Exposure to someone with infectious disease in past 14 days?: No Do you have a fever (greater than 100.4 F or 38 C)?: No Have you tested positive for COVID-19: No Exposed to someone with COVID-19 in past 14 days?: No Do you have a sore throat?: No Do you have a cough?: No Do you have any weakness?: No Do you have any diarrhea?: No Are you experiencing any unusual bleeding?: No Do you have any muscle aches/pain?: Yes Do you have any abdominal pain?: No Are you experiencing loss of taste or smell?: No Other Medical History Have you received the Flu Vaccine for this season: No Have you received the Pneumonia Vaccine: No ROS Obtained: Yes All systems reviewed & no additional complaints except as documented Physical Exam General General appearance: alert Head Head exam: atraumatic and normocephalic Eye Eye exam: Present normal appearance, PERRL and EOMI Neck Neck exam: Present normal inspection, full ROM and trachea midline Respiratory Respiratory exam: Absent respiratory distress, wheezes, stridor, accessory muscle use or prolonged expiratory phase Cardiovascular Cardiovascular exam: Present other (Pulses equal symmetric in upper and lower extremities) Abdominal Exam Abdominal exam: Present soft; Absent distention, tenderness or pulsatile mass Extremities Exam Extremities exam: Absent edema Neurological Exam Neurological exam: Present alert, oriented X3 and CN II-XII intact; Absent motor sensory deficit Skin Skin exam: Present warm and dry; Absent diaphoresis or erythema Medical Decision Making Medical Records Medical records reviewed: Yes I reviewed the patient's medical records. Screening: Per USPSTF and CDC recommendations, given the prevalence of disease in our region, it is our hospital?s policy to screen for HIV and viral Hepatitis for all patients aged 18 and over and those with ongoing risk factors. Jose Inquiry Pt receiving controlled substance: No Jose was queried for this patient: No Vital Signs: 04/15/24 16:50 04/15/24 19:05 04/15/24 19:15 Temperature 98.6 F Temperature Source Oral Pulse Rate 97 H 93 H Pulse Rate [Left Radial] 95 H Respiratory Rate 20 14 13 Blood Pressure Blood Pressure [Right Arm] 151/83 H Blood Pressure Mean [Right Arm] 105 02 Sat by Pulse Oximetry 98 96 97 Oxygen Delivery Method Room Air Room Air Room Air 04/15/24 19:33 04/15/24 19:45 04/15/24 20:00 Temperature Temperature Source Pulse Rate 99 H 97 H 96 H Pulse Rate [Left Radial] Respiratory Rate Blood Pressure 163/86 H Blood Pressure [Right Arm] Blood Pressure Mean [Right Arm] 02 Sat by Pulse Oximetry 99 100 96 Oxygen Delivery Method Room Air Room Air Room Air 04/15/24 20:30 Temperature Temperature Source Pulse Rate 100 H Pulse Rate [Left Radial] Respiratory Rate Blood Pressure 181/86 H Blood Pressure [Right Arm] Blood Pressure Mean [Right Arm] 02 Sat by Pulse Oximetry 97 Oxygen Delivery Method Room Air Lab Data Lab Results 04/15/24 17:55: WBC 8.1, RBC 5.11, Hgb 16.3 H, Hct 46.4, MCV 90.8, MCH 31.9 H, MCHC 35.1, RDW 12.0, Plt Count 237, MPV 10.5 H, Neut % (Auto) 50.1, Lymph % (Auto) 39.3, Dawson % (Auto) 8.7, Eos % (Auto) 1.0, Baso % (Auto) 0.5, Neut # (Auto) 4.1, Lymph # (Auto) 3.2, Dawson # (Auto) 0.7, Eos # (Auto) 0.1, Baso # (Auto) 0.0, PT 10.4, INR 0.94, APTT 26.4, Sodium 138, Potassium 4.3, Chloride 100, Carbon Dioxide 29, Anion Gap 13.3, BUN 12, Creatinine 0.60, Estimated Creat Clear 53, Estimated GFR 100, Est GFR ( Amer) 121, Glucose 170 H, Lactate 2.1, Calcium 9.2, Magnesium 1.6, Total Bilirubin 0.5, AST 64 H, ALT 35, Alkaline Phosphatase 175 H, Ammonia 38 H, NT-Pro-B Natriuret Pep 87.5, Total Protein 7.8 D, Albumin 4.3, Globulin 3.5 H, Albumin/Globulin Ratio 1.2, Lipase 283, Urine Color Yellow, Urine Appearance Clear, Urine pH 6.0, Ur Specific Hague 1.010, Urine Protein Negative, Urine Glucose (UA) 3+, Urine Ketones Negative, Urine Blood Negative, Urine Nitrate Negative, Urine Bilirubin Negative, Urine Urobilinogen 0.2, Ur Leukocyte Esterase Negative 04/15/24 19:10: VBG pH 7.37, VBG pCO2 52.7 H, VBG pO2 20.6 L, VBG HCO3 29.9, VBG Total CO2 31.5 H, VBG O2 Saturation 34.7 L, VBG Base Excess 4.7 H, VBG Lactic Acid 2.0 04/15/24 17:55 04/15/24 17:55 Orders (Tests/Meds): ED MEDICATIONS Discontinued Medications Generic Name Dose Route Start Last Admin Trade Name Freq PRN Reason Stop Dose Admin Sodium Chloride 1,000 mls @ 999 mls/hr 04/15/24 19:09 04/15/24 19:31 Sod Chlor 0.9% 1000ml Bag IV 04/15/24 20:09 999 mls/hr .Q1H1M ONE Administration ORDERS Category Date Time Status CXR 2 view (NOT portable) [XR chest 2V] Stat Exams 04/15/24 19:10 Completed Ammonia Stat Lab 04/15/24 17:55 Completed CMP [Comprehensive Metabolic Panel] Stat Lab 04/15/24 17:55 Completed Complete Blood Count Auto Diff Stat Lab 04/15/24 17:55 Completed Lactic Acid Stat Lab 04/15/24 17:55 Completed Lipase Stat Lab 04/15/24 17:55 Completed Magnesium Stat Lab 04/15/24 17:55 Completed NT Pro Brain Natriuretic Pep. 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 Patient states that she has been without an appetite for the past few days, getting worse. Minimal p.o. intake, but still able to control her glucoses with continuous glucose monitor and they have been anywhere from 1 50-200. No fevers or chills, but vomiting is nonbloody, nonbilious as well as nonbloody stools. States that she has generally no energy, so came in for further evaluation because she states that last time she felt this way her ammonia was too high and she was admitted to the hospital. Has follow-up with gastroenterology here in the next couple of weeks. Has never seen hepatology. Has never needed fluid drained from her abdomen. History was obtained via conversation with patient and [id number]. On arrival, patient hemodynamically stable, alert, oriented x4, appropriate, GCS 15, moving all extremities spontaneously, pupils equal and reactive to light. Full physical exam performed and significant for very well-appearing female no acute distress. Speech sentences. Lungs are clear, cardiac exam normal. No lower extremity edema. Abdomen is soft, nondistended, nontender. States that she has fullness underneath her ribs. No overlying skin changes. Differential includes metabolic abnormality, endocrinologic abnormality, urinary tract infection, pneumonia, sepsis, ACS, OR, diabetic emergency, among other. Patient placed on continuous cardiac monitoring and continuous pulse ox with initial blood pressure 151/83, heart rate 95, saturation 98% on room. Patient given a liter of fluids. Workup independently interpreted and significant for mildly elevated alkaline phosphatase and AST. Nonactionable urine or other labs. On independent interpretation of imaging, no acute cardiothoracic airspace disease on chest x-ray. See radiology read for full review of final results. On reevaluation, patient feeling a little better after fluids, but relayed her baseline. Relieved by news. Given patient presentation, workup, history, this most likely represents generalized weakness in the setting of decreased appetite and chronic comorbidities. I considered CT abdomen and pelvis, but abdomen is benign, no tenderness elicited on my exam, no lab abnormalities pointing to acute intra-abdominal emergency, so not deemed appropriate or necessary at this time. Recommended continued follow-up with gastroenterology as well as potential MRCP should follow-up not answer questions. She voiced understanding because patient at baseline without signs or symptoms of clinical decompensation, deemed appropriate for discharge. Results were relayed to patient and family who voiced understanding and were agreeable to outpatient management and follow up. I discussed my clinical impression with patient and family and answered all questions. At this time, the evidence for any other entities in the differential is insufficient to warrant any further testing or ED observation. This was explained as well. Advisory was given that persistent or worsening symptoms require further evaluation. I confirmed the understanding of this discussion. Registered Midwife disclaimer Much of this encounter note is an electronic facilities plant engineer spoken language to printed text. Electronic facilities plant engineer of the spoken language may permit errors. Although I have reviewed the note, some errors may still exist. Critical Care Critical Care Time Critical Care Time: No
[2024-04-15 19:10] LABS: Lactic Acid 2.1 mmol/L (0.7-2.1)
--- NOTE | 2024-04-15 19:10 | XR_ITS ---
PROCEDURE INFORMATION: Exam: XR Chest Exam date and time: 04/15/2024 7:19 PM Age: 63 years old Clinical indication: Other: Weakness; Additional info: Weakness, generalized TECHNIQUE: Imaging protocol: Radiologic exam of the chest. Views: 2 views. COMPARISON: CR XR CHEST PORTABLE 02/17/2024 6:36 PM FINDINGS: Lungs: Unremarkable. No consolidation. Pleural spaces: Unremarkable. No pleural effusion. No pneumothorax. Heart/Mediastinum: Unremarkable. No cardiomegaly. Bones/joints: Anterior cervical fusion Intraperitoneal space: Surgical clips in the right upper quadrant of the abdomen IMPRESSION: No acute process
[2024-04-15 19:11] LABS: Appearance,Urine CLEAR (Clear); Bilirubin,Urine Negative (Negative); Blood, Urine Negative (Negative); Color,Urine YELLOW (Yellow); Glucose,Urine (UA) 3+ (Negative); Ketones,Urine Negative (Negative); Leukocyte Esterase,Urine Negative (Negative); Nitrate,Urine Negative (Negative); Protein,Urine Negative (Negative); Urobilinogen,Urine 0.2 EU/dl (0.2)
[2024-04-15 19:26] LABS: Lipase 283 U/L (23-300)
[2024-04-15 19:27] LABS: Magnesium 1.6 mg/dl (1.6-2.3)
[2024-04-15] MEDS: 0.9 % SODIUM CHLORIDE 1000ML 1,000 ML 999 ML IV (19:31)
[2024-04-15 19:35] LABS: NT Pro Brain Natriuretic Pep. 87.5 pg/mL (0-125)
[2024-04-15 19:40] LABS: VBG Base Excess 4.7 mmol/L (-2.4-2.3); VBG HCO3 29.9 mmol/L (23-30); VBG Oxygen Saturation 34.7 % (50-70); VBG PH 7.37 mmol/L (7.31-7.41); VBG PO2 20.6 mmol/L (28-40); VBG Total CO2 31.5 mmol/L (23-27)
[2024-04-15 19:44] LABS: VBG PCO2 52.7 mmol/L (35-51)
[2024-04-15 19:52] LABS: Activated Partial Thrombo Time 26.4 seconds (22.5-28.5); INR 0.94 (0.9-1.1); Prothrombin Time 10.4 seconds (9.2-12.1)
--- NOTE | 2024-04-15 19:52 | PC.NURSE ---
VBG PH 7.37 CO2 52.7 Bicarb 29.9 Lactic 2
[2024-04-15 21:09] LABS: Bacteria,Urine Trace /lpf; WBC,Urine Occasional #/hpf (0-3)
== END 2024-04-15 20:59 | disposition home or self-care (01) ==
PROVIDERS: Emergency Provider Emergency Medicine; PCP Physician Assistant
DX: R53.1 Weakness (principal); R10.9 Unspecified abdominal pain; R63.0 Anorexia; R11.2 Nausea with vomiting, unspecified; K75.81 Nonalcoholic steatohepatitis (NASH); E11.9 Type 2 diabetes mellitus without complications
CPT/HCPCS: 71046; 80053; 81001; 82140; 82803; 83605; 83690; 83735; 83880; 85025; 85610; 85730; 96365; 99283; J7030

== ENCOUNTER 2024-04-30 10:18 | Outpatient (CLI) | payer MEDICARE, SELFPAY ==
[2024-04-30 10:53] LABS: Basophils % 0.6 % (0.1-2.0); Eosinophils # 0.1 K/mm3 (0.0-0.4); Eosinophils % 1.2 % (0.1-12.0); Hematocrit 45.7 % (37.0-47.0); Hemoglobin 15.8 g/dL (12.2-16.2); Lymphocytes # 2.6 K/mm3 (0.7-4.5); Mean Corpuscular HGB Conc 34.6 g/dL (31.8-35.4); Mean Corpuscular Volume 92.7 fl (81-99); Mean Platelet Volume 9.8 fl (7.4-10.4); Monocytes # 0.5 K/mm3 (0.1-1.0); Monocytes % 7.8 % (1.7-9.3); Neutrophils # 3.6 K/mm3 (1.8-7.8); Neutrophils % 52.1 % (37.0-80.0); Platelet Count 243 K/mm3 (142-424); Red Blood Count 4.93 M/mm3 (4.20-5.40); Red Cell Distribution Width 12.4 % (11.5-17.5)
[2024-04-30 10:56] LABS: Ammonia 12 umol/L (9-30)
[2024-04-30 11:13] LABS: Chloride 102 mmol/L (98-107); Potassium 4.1 mmoL/L (3.5-5.1); Sodium 137 mmol/L (136-145)
[2024-04-30 11:15] LABS: Blood Urea Nitrogen 11 mg/dl (7-17); Estimated Glomerular Filt Rate 84 ml/min (>60); GFR (African American) 102 ML/MIN (>60)
[2024-04-30 11:16] LABS: Alanine Aminotransferase 27 U/L (12-78); Albumin/Globulin Ratio 1.4 (1.1-1.8); Alkaline Phosphatase 105 U/L (38-126); Anion Gap 8.1 mEq/L (5-15); Aspartate Amino Transferase 49 U/L (14-36); Bilirubin,Total 0.7 mg/dl (0.2-1.3); Calcium 9.5 mg/dl (8.4-10.2); Carbon Dioxide 31 mmol/L (22.0-30.0); Globulin 2.8 g/dL (1.3-3.2); Glucose 139 mg/dl (74-100); Total Protein,Serum 6.8 g/dl (6.3-8.2)
[2024-04-30 12:04] LABS: INR 0.96 (0.9-1.1); Prothrombin Time 10.6 seconds (9.2-12.1)
== END 2024-04-30 23:59 | disposition home or self-care (01) ==
LOC: LAB 10:19
PROVIDERS: PCP Physician Assistant; Visit Provider Internal Medicine Gastroenterology
DX: K75.81 Nonalcoholic steatohepatitis (NASH) (principal); K74.69 Other cirrhosis of liver; B19.20 Unspecified viral hepatitis C without hepatic coma
CPT/HCPCS: 36415; 80053; 82105; 82140; 85025; 85610

== ENCOUNTER 2024-05-13 09:28 | Outpatient (CLI) | payer MEDICARE, SELFPAY ==
--- NOTE | 2024-05-13 09:28 | US_ITS ---
FINAL REPORT TECHNIQUE: Multiple transverse and longitudinal images CLINICAL HISTORY: Cirrhosis and right upper quadrant pain COMPARISON: None FINDINGS: The gallbladder has been surgically resected. No biliary ductal dilatation is appreciated. No fluid collections are seen. The liver is normal in size and echogenicity. There are no obvious changes of cirrhosis or portal hypertension identified. Limited portions of the right kidney are unremarkable. IMPRESSION: Prior cholecystectomy. No obvious changes of cirrhosis or portal hypertension are identified. Reviewed, Interpreted and Dictated by Linda Hicks MD Transcribed by Kathryn Ray Authenticated and [facility]
== END 2024-05-13 23:59 | disposition home or self-care (01) ==
LOC: RAD 09:28
PROVIDERS: PCP Physician Assistant; Visit Provider Internal Medicine Gastroenterology
DX: R10.11 Right upper quadrant pain (principal); K74.60 Unspecified cirrhosis of liver
CPT/HCPCS: 76705

== ENCOUNTER 2024-05-27 12:22 | Emergency (ER) | payer MEDICARE, SELFPAY ==
[2024-05-27 12:26] VITALS: BP 152/75; PULSE 97; RESP 18; TEMP 36.8; O2SAT 97; BMI 21.6
--- NOTE | 2024-05-27 12:36 | ED_ITS ---
Discharge Plan Disposition Patient Disposition: Home, Self-Care Condition: Good Prescriptions Prescriptions: No Action insulin degludec [Tresiba FlexTouch U-100] 100 unit/mL (3 mL) insulin pen 20 unit SQ HS lactulose 20 gram/30 mL solution 20 g PO ONCE PRN temazepam 30 mg capsule 30 mg PO ONCE cholecalciferol (vitamin D3) 1,250 mcg (50,000 unit) capsule 1,250 mcg PO WEEKLY Rexulti 1 mg tablet 2 mg PO DAILY Mounjaro 5 mg/0.5 mL pen injector 5 mg SQ QWEEK Linzess 145 mcg capsule 145 mcg PO DAILY PRN mirabegron [Myrbetriq] 25 mg tablet extended release 24 hr 25 mg PO ONCE desvenlafaxine succinate 50 mg tablet extended release 24 hr 50 mg PO ONCE omeprazole 40 mg capsule,delayed release(DR/EC) 40 mg PO DAILY metoprolol succinate 100 mg tablet extended release 24 hr 100 mg PO ONCE ondansetron 8 mg tablet,disintegrating 8 mg PO PRN Patient Comments: DISSOLVE 1 TABLET IN MOUTH THREE TIMES DAILY NEEDED FOR NAUSEA AND VOMITING buspirone 5 mg tablet 5 mg PO BID Qty: 60 12RF Rx Instructions: Please take 1 tablet p.o. twice daily simvastatin 20 mg tablet 20 mg PO HS Patient Comments: TAKE 1 TABLET BY MOUTH DAILY Jardiance 10 mg tablet 10 mg PO DAILY Qty: 30 0RF Referrals Follow up/Referrals: Makenzie Valdez PA [Primary Care Provider] - See instructions Activity Restrictions/Add. Instructions Additional Instructions/Restrictions: As we discussed I think your symptoms are directly and appropriately related to Mounjaro. If you feel the known effects are intolerable I recommend stopping the drug and to talk to your PCP but especially to your creping machine operator helper. If you have any acute new continued or worsening signs or symptoms follow-up with your PCP sooner or return to the ER as needed. Clinical Impressions Clinical Impression: Decreased appetite, Early satiety Print Language Print Language: Moldovan Discharge ED Provider: Cehpe Gomes General Adult HPI <COLTON Artis - Last Filed: 05/27/24 15:37> General Chief complaint: PAIN Stated complaint: vomiting diarrhea back pain Time Seen by Provider: 05/27/24 12:36 Mode of Arrival: Ambulatory Source of Information: Patient Description of Symptoms (Recalled from ER Triage Doc. by RN): Pt presents for evaluation of having a decreased appetite x 4-6 months, pt states she thinks this is related to her diabetes medications. Pt is also having back pain to her mid back that she has had for a year. Denies any recent injuries. History of Present Illness HPI narrative: Patient presents for evaluation of multiple complaints. Patient states that she has decreased appetite decreased interest in most things. Patient also reports that she has had chronic left and right sided back pain for over a year. At baseline patient has insulin-dependent type 2 diabetes mellitus, Gonzalez cirrhosis, GERD, depression hyperlipidemia. She also has Gonzalez cirrhosis and follows with gastroenterology. 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 Most of the symptoms have been present for well over 6 months however she has had decreased interest in things like caring for her pets decreased interest in food and no appetite and early satiety. She was started on Mounjaro approximately 2 months ago. She denies any nausea vomiting diarrhea hemoptysis hematochezia melena hematemesis hematuria feeling particularly depressed suicidal or homicidal. Related Data Home Medications ?Medication ?Instructions ?Recorded ?Confirmed simvastatin 20 mg tablet 20 mg PO HS 02/18/24 04/30/24 brexpiprazole 1 mg tablet (Rexulti) 2 mg PO DAILY 04/30/24 04/30/24 cholecalciferol (vitamin D3) 1,250 1,250 mcg PO WEEKLY 04/30/24 04/30/24 mcg (50,000 unit) capsule desvenlafaxine succinate 50 mg 50 mg PO ONCE 04/30/24 04/30/24 tablet,extended release 24 hr insulin degludec 100 unit/mL (3 20 unit SQ HS 04/30/24 04/30/24 mL) subcutaneous pen (Tresiba FlexTouch U-100 insulin) lactulose 20 gram/30 mL oral 20 g PO ONCE PRN 04/30/24 04/30/24 solution linaclotide 145 mcg capsule 145 mcg PO DAILY PRN 04/30/24 04/30/24 (Linzess) metoprolol succinate 100 mg 100 mg PO ONCE 04/30/24 04/30/24 tablet,extended release 24 hr mirabegron 25 mg tablet,extended 25 mg PO ONCE 04/30/24 04/30/24 release 24 hr (Myrbetriq) omeprazole 40 mg capsule,delayed 40 mg PO DAILY 04/30/24 04/30/24 release ondansetron 8 mg disintegrating 8 mg PO PRN 04/30/24 04/30/24 tablet temazepam 30 mg capsule 30 mg PO ONCE 04/30/24 04/30/24 tirzepatide 5 mg/0.5 mL 5 mg SQ QWEEK 04/30/24 04/30/24 subcutaneous pen injector (Faisal) Previous Rx's ?Medication ?Instructions ?Recorded empagliflozin 10 mg tablet 10 mg PO DAILY #30 tabs 02/18/24 (Jardiance) buspirone 5 mg tablet 5 mg PO BID #60 tabs 04/30/24 Allergies Allergy/AdvReac Type Severity Reaction Status Date / Time hydromorphone (From Dilaudid) Allergy Nausea Verified 04/30/24 09:34 NSAIDS (Non-Steroidal Allergy Nausea Verified 04/30/24 09:34 Anti-Inflamma [facility] <COLTON Artis - Last Filed: 05/27/24 15:37> [facility] Disclaimer: The information contained in this section may have been updated after the patient was seen, as this information can be updated by other users. 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 for tuberculosis Sleep apnea Scoliosis Hyperlipidemia Hypertension Fibromyalgia Metabolic dysfunction-associated steatotic liver disease (MASLD) Hepatic encephalopathy Diabetes Surgical History History of cholecystectomy H/O: hysterectomy History of tonsillectomy H/O neck surgery Family History Father Liver cancer Sister Liver disease Other No significant family history Social History (Updated 04/30/24 @ 09:42 by Sobia Wong MA) Smoking Status: Current every day smoker alcohol intake: current alcohol intake frequency: holidays/special occasions only substance use type: denies use current occupational status: disabled Travel in the last 8 weeks: None Have you lived/traveled outside [place] in past 30 days?: No Contact w/someone who lives/traveled outside US past 30 days?: No Exposure to someone with infectious disease in past 14 days?: No Do you have a fever (greater than 100.4 F or 38 C)?: No Have you tested positive for COVID-19: No Exposed to someone with COVID-19 in past 14 days?: No Do you have a sore throat?: No Do you have a cough?: No Do you have any weakness?: No Do you have any diarrhea?: Yes Are you experiencing any unusual bleeding?: No Do you have any muscle aches/pain?: No Do you have any abdominal pain?: No Are you experiencing loss of taste or smell?: No Other Medical History Have you received the Flu Vaccine for this season: No Have you received the Pneumonia Vaccine: Yes <COLTON Artis - Last Filed: 05/27/24 15:37> ROS Obtained: Yes Systems reviewed as appropriate & no additional complaints except as documented Physical Exam <COLTON Artis - Last Filed: 05/27/24 15:37> General General appearance: alert and in no apparent distress Respiratory Respiratory exam: Present normal lung sounds bilaterally Cardiovascular Cardiovascular exam: Present regular rate Neurological Exam Neurological exam: Present alert and oriented X3 Medical Decision Making <COLTON Artis - Last Filed: 05/27/24 15:37> Medical Records Medical records reviewed: Yes I reviewed the patient's medical records. Screening: Per USPSTF and CDC recommendations, given the prevalence of disease in our region, it is our hospital?s policy to screen for HIV and viral Hepatitis for all patients aged 18 and over and those with ongoing risk factors. Jose Inquiry Pt receiving controlled substance: No Vital Signs: 05/27/24 12:26 05/27/24 15:12 Temperature 98.2 F 97.8 F Temperature Source Oral Oral Pulse Rate 63 Pulse Rate [Right] 97 H Respiratory Rate 18 20 Blood Pressure 145/63 H Blood Pressure [Right Arm] 152/75 H Blood Pressure Mean [Right Arm] 100 Blood Pressure Source Automatic Cuff Blood Pressure Source [Right Arm] Automatic Cuff Blood Pressure Position Supine Blood Pressure Position [Right Arm] Sitting 02 Sat by Pulse Oximetry 97 Oxygen Delivery Method Room Air Room Air Lab Data Lab results reviewed: Yes I reviewed the patient's lab results. Lab Results 05/27/24 12:50: WBC 6.6, RBC 5.05, Hgb 16.4 H, Hct 47.3 H, MCV 93.7, MCH 32.5 H, MCHC 34.7, RDW 12.4, Plt Count 238, MPV 9.8, Neut % (Auto) 48.0, Lymph % (Auto) 39.8, [place] % (Auto) 10.1 H, Eos % (Auto) 1.5, Baso % (Auto) 0.6, Neut # (Auto) 3.2, Lymph # (Auto) 2.6, [place] # (Auto) 0.7, Eos # (Auto) 0.1, Baso # (Auto) 0.0, PT 11.4, INR 1.02, Sodium 138, Potassium 4.0, Chloride 98, Carbon Dioxide 28, A nion Gap 16.0 H, BUN 12, Creatinine 0.70, Estimated Creat Clear 52, Estimated GFR 84, Est GFR ( Amer) 102, Glucose 109 H, Lactate 1.4, Calcium 10.1, Magnesium 1.7, Total Bilirubin 1.0, AST 66 H, ALT 39, Alkaline Phosphatase 79, A mmonia < 9 L, NT-Pro-B Natriuret Pep 83.4, Total Protein 7.9, Albumin 4.2, G lobulin 3.7 H, Albumin/Globulin Ratio 1.1, Lipase 144, Procalcitonin 0.054 05/27/24 13:56: Urine Color Yellow, Urine Appearance Clear, Urine pH 6.0, Ur Specific [place] 1.010, Urine Protein Negative, Urine Glucose (UA) 3+, Urine Ketones Negative, Urine Blood Negative, Urine Nitrate Negative, Urine Bilirubin Negative, Urine Urobilinogen 0.2, Ur Leukocyte Esterase Negative, Urine RBC None, Urine WBC None, Ur Squamous Epith Cells 3-5, Urine Bacteria None 05/27/24 12:50 05/27/24 12:50 Orders (Tests/Meds): ED MEDICATIONS Discontinued Medications Generic Name Dose Route Start Last Admin Trade Name Freq PRN Reason Stop Dose Admin Iopamidol 75 ml 05/27/24 13:42 05/27/24 13:43 Iopamidol-370 (76%);100ml Bottle IV 05/27/24 13:43 75 ml ONCE ONE Administration Ondansetron HCl 4 mg 05/27/24 12:39 05/27/24 13:01 Ondansetron 4mg/2ml Vial IV 05/27/24 12:40 4 mg ONCE ONE Administration Sodium Chloride 10 ml 05/27/24 13:42 05/27/24 13:42 Sodium Chloride 0.9% 10ml Syr (Rad Only) IV 05/27/24 13:43 10 ml ONCE ONE Administration ORDERS Category Date Time Status CT abdomen pelvis w con Stat Cat Scan 05/27/24 12:39 Completed Ammonia Stat Lab 05/27/24 12:50 Completed BNP [NT Pro Brain Natriuretic Pep.] Stat Lab 05/27/24 12:50 Completed CBC w/Auto Diff [Complete Blood Count Auto Diff] Stat Lab 05/27/24 12:50 Completed CMP [Comprehensive Metabolic Panel] Stat Lab 05/27/24 12:50 Completed INR [Prothrombin Time INR] Stat Lab 05/27/24 12:50 Completed Lactic Acid Stat Lab 05/27/24 12:50 Completed Lipase Stat Lab 05/27/24 12:50 Completed Magnesium Stat Lab 05/27/24 12:50 Completed Procalcitonin Stat Lab 05/27/24 12:50 Completed UA [Urinalysis and Microscopic] Stat Lab 05/27/24 13:56 Completed Medical Decision Narrative: In summary patient is a 63-year-old who presents to the emergency department for evaluation of lack of interest in food early satiety but also lack of interest and other things. Patient is hemodynamically stable upon arrival, afebrile. Physical exam is remarkable for a well-nourished well-developed 63-year-old female who is in no acute distress. Her BMI is 21. Breath sounds clinical bilaterally to the bases that adventitious sounds. Abdomen soft nontender no rebound or guarding or rigidity. Bowel sounds normal active. Patient has full range of motion all 4 extremities. She has no tenderness palpation dorsal spine. Patient has no focal neurologic deficits.. Differential diagnosis includes normal intended effects of GLP-1 like Mounjaro versus electrolyte abnormality versus dehydration etc. Initial workup will be conducted with hematologic labs urinalysis CT scan abdomen pelvis. Initial interventions include crystalloid and Zofran. Initial workup reviewed by me shows that her hematologic labs are actually nonactionable and she is well-nourished with an albumin of 4.2 and my informal TURB Tatian CT scan abdomen pelvis does not show any acute abnormalities.. Upon repeat evaluation patient is able to tolerate oral intake without nausea or vomiting.. Given this I had a shared decision- making discussion with the patient regarding the intended effects of a GLP-1 inhibitor like Mounjaro and that it is likely the root cause of what she is actually experienced but in an expected fashion. Patient unfortunately was not understanding of all of the potential ways that Mounjaro achieves glycemic control. I advised patient to discontinue the drug until she follows up with her PCP and gastroenterology. Patient verbalized understanding and agreement. Thus patient is appropriate for discharge with close follow-up with her PCP and gastroenterology. <Chepe Gomes MD - Last Filed: 05/28/24 07:36> Vital Signs: 05/27/24 12:26 05/27/24 15:12 Temperature 98.2 F 97.8 F Temperature Source Oral Oral Pulse Rate 63 Pulse Rate [Right] 97 H Respiratory Rate 18 20 Blood Pressure 145/63 H Blood Pressure [Right Arm] 152/75 H Blood Pressure Mean [Right Arm] 100 Blood Pressure Source Automatic Cuff Blood Pressure Source [Right Arm] Automatic Cuff Blood Pressure Position Supine Blood Pressure Position [Right Arm] Sitting 02 Sat by Pulse Oximetry 97 Oxygen Delivery Method Room Air Room Air Lab Data Lab Results 05/27/24 12:50: WBC 6.6, RBC 5.05, Hgb 16.4 H, Hct 47.3 H, MCV 93.7, MCH 32.5 H, MCHC 34.7, RDW 12.4, Plt Count 238, MPV 9.8, Neut % (Auto) 48.0, Lymph % (Auto) 39.8, [place] % (Auto) 10.1 H, Eos % (Auto) 1.5, Baso % (Auto) 0.6, Neut # (Auto) 3.2, Lymph # (Auto) 2.6, [place] # (Auto) 0.7, Eos # (Auto) 0.1, Baso # (Auto) 0.0, PT 11.4, INR 1.02, Sodium 138, Potassium 4.0, Chloride 98, Carbon Dioxide 28, A nion Gap 16.0 H, BUN 12, Creatinine 0.70, Estimated Creat Clear 52, Estimated GFR 84, Est GFR ( Amer) 102, Glucose 109 H, Lactate 1.4, Calcium 10.1, Magnesium 1.7, Total Bilirubin 1.0, AST 66 H, ALT 39, Alkaline Phosphatase 79, A mmonia < 9 L, NT-Pro-B Natriuret Pep 83.4, Total Protein 7.9, Albumin 4.2, G lobulin 3.7 H, Albumin/Globulin Ratio 1.1, Lipase 144, Procalcitonin 0.054 05/27/24 13:56: Urine Color Yellow, Urine Appearance Clear, Urine pH 6.0, Ur Specific [place] 1.010, Urine Protein Negative, Urine Glucose (UA) 3+, Urine Ketones Negative, Urine Blood Negative, Urine Nitrate Negative, Urine Bilirubin Negative, Urine Urobilinogen 0.2, Ur Leukocyte Esterase Negative, Urine RBC None, Urine WBC None, Ur Squamous Epith Cells 3-5, Urine Bacteria None Orders (Tests/Meds): ED MEDICATIONS Discontinued Medications Generic Name Dose Route Start Last Admin Trade Name Freq PRN Reason Stop Dose Admin Iopamidol 75 ml 05/27/24 13:42 05/27/24 13:43 Iopamidol-370 (76%);100ml Bottle IV 05/27/24 13:43 75 ml ONCE ONE Administration Ondansetron HCl 4 mg 05/27/24 12:39 05/27/24 13:01 Ondansetron 4mg/2ml Vial IV 05/27/24 12:40 4 mg ONCE ONE Administration Sodium Chloride 10 ml 05/27/24 13:42 05/27/24 13:42 Sodium Chloride 0.9% 10ml Syr (Rad Only) IV 05/27/24 13:43 10 ml ONCE ONE Administration ORDERS Category Date Time Status CT abdomen pelvis w con Stat Cat Scan 05/27/24 12:39 Completed Ammonia Stat Lab 05/27/24 12:50 Completed BNP [NT Pro Brain Natriuretic Pep.] Stat Lab 05/27/24 12:50 Completed CBC w/Auto Diff [Complete Blood Count Auto Diff] Stat Lab 05/27/24 12:50 Completed CMP [Comprehensive Metabolic Panel] Stat Lab 05/27/24 12:50 Completed INR [Prothrombin Time INR] Stat Lab 05/27/24 12:50 Completed Lactic Acid Stat Lab 05/27/24 12:50 Completed Lipase Stat Lab 05/27/24 12:50 Completed Magnesium Stat Lab 05/27/24 12:50 Completed Procalcitonin Stat Lab 05/27/24 12:50 Completed UA [Urinalysis and Microscopic] Stat Lab 05/27/24 13:56 Completed Medical Decision Narrative: In summary patient is a 63-year-old who presents to the emergency department for evaluation of lack of interest in food early satiety but also lack of interest and other things. Patient is hemodynamically stable upon arrival, afebrile. Physical exam is remarkable for a well-nourished well-developed 63-year-old female who is in no acute distress. Her BMI is 21. Breath sounds clinical bilaterally to the bases that adventitious sounds. Abdomen soft nontender no rebound or guarding or rigidity. Bowel sounds normal active. Patient has full range of motion all 4 extremities. She has no tenderness palpation dorsal spine. Patient has no focal neurologic deficits.. Differential diagnosis includes normal intended effects of GLP-1 like Mounjaro versus electrolyte abnormality versus dehydration etc. Initial workup will be conducted with hematologic labs urinalysis CT scan abdomen pelvis. Initial interventions include crystalloid and Zofran. Initial workup reviewed by me shows that her hematologic labs are actually nonactionable and she is well-nourished with an albumin of 4.2 and my informal TURB Tatian CT scan abdomen pelvis does not show any acute abnormalities.. Upon repeat evaluation patient is able to tolerate oral intake without nausea or vomiting.. Given this I had a shared decision- making discussion with the patient regarding the intended effects of a GLP-1 inhibitor like Mounjaro and that it is likely the root cause of what she is actually experienced but in an expected fashion. Patient unfortunately was not understanding of all of the potential ways that Mounjaro achieves glycemic control. I advised patient to discontinue the drug until she follows up with her PCP and gastroenterology. Patient verbalized understanding and agreement. Thus patient is appropriate for discharge with close follow-up with her PCP and gastroenterology. I was consulted by the KELSEY, and we discussed the complexity of the problems being addressed. I approved the treatment and management plan for this patient's care in the Emergency Department, thus performing a substantive portion of the medical decision making. Chepe Gomes MD Critical Care <COLTON Artis - Last Filed: 05/27/24 15:37> Critical Care Time Critical Care Time: No
--- NOTE | 2024-05-27 12:39 | CT_ITS ---
FINAL REPORT TECHNIQUE: Oral and IV contrast enhanced exam This study was performed with techniques to keep radiation doses as low as reasonably achievable, (ALARA). Individualized dose reduction techniques using automated exposure control or adjustment of mA and/or kV according to the patient''s size were employed. CLINICAL HISTORY: Nausea vomiting diarrhea, history of cirrhosis FINDINGS: Abdomen: Lung bases are clear. There is a cirrhotic appearance to the liver. Spleen is normal in size. There are large left upper quadrant varices. Patient is status postcholecystectomy. Solid abdominal organs are otherwise unremarkable. There is fluid-filled bowel which may be seen with ileus or enterocolitis. Pelvis: The appendix is normal. Patient is status post hysterectomy. Urinary bladder is distended. IMPRESSION: Cirrhosis without ascites. Fluid-filled bowel which may be seen with enterocolitis or ileus. Reviewed, Interpreted and Dictated by Linda Hicks MD Transcribed by Jihan Smalls Authenticated and . [facility]
--- NOTE | 2024-05-27 12:59 | PC.NURSE ---
Gave the patient a blanket.
[2024-05-27] MEDS: ONDANSETRON 4MG/2ML VIAL 4 MG IV (13:01)
[2024-05-27 13:10] LABS: Ammonia < 9 umol/L (9-30); Lactic Acid 1.4 mmol/L (0.7-2.1)
[2024-05-27 13:14] LABS: Basophils % 0.6 % (0.1-2.0); Eosinophils # 0.1 K/mm3 (0.0-0.4); Eosinophils % 1.5 % (0.1-12.0); Hematocrit 47.3 % (37.0-47.0); Hemoglobin 16.4 g/dL (12.2-16.2); Lymphocytes # 2.6 K/mm3 (0.7-4.5); Lymphocytes % 39.8 % (10-50); Mean Corpuscular HGB Conc 34.7 g/dL (31.8-35.4); Mean Corpuscular Hemoglobin 32.5 pg (27.0-31.2); Mean Corpuscular Volume 93.7 fl (81-99); Mean Platelet Volume 9.8 fl (7.4-10.4); Monocytes # 0.7 K/mm3 (0.1-1.0); Monocytes % 10.1 % (1.7-9.3); Neutrophils # 3.2 K/mm3 (1.8-7.8); Platelet Count 238 K/mm3 (142-424); Red Blood Count 5.05 M/mm3 (4.20-5.40); Red Cell Distribution Width 12.4 % (11.5-17.5); White Blood Count 6.6 K/mm3 (4.8-10.8)
[2024-05-27 13:17] LABS: Alanine Aminotransferase 39 U/L (12-78); Albumin Level 4.2 g/dl (3.5-5.0); Albumin/Globulin Ratio 1.1 (1.1-1.8); Alkaline Phosphatase 79 U/L (38-126); Aspartate Amino Transferase 66 U/L (14-36); Blood Urea Nitrogen 12 mg/dl (7-17); Calcium 10.1 mg/dl (8.4-10.2); Carbon Dioxide 28 mmol/L (22.0-30.0); Chloride 98 mmol/L (98-107); Creatinine Clearance Estimated 52 mL/min (50-200); Estimated Glomerular Filt Rate 84 ml/min (>60); GFR (African American) 102 ML/MIN (>60); Globulin 3.7 g/dL (1.3-3.2); Glucose 109 mg/dl (74-100); Lipase 144 U/L (23-300); Magnesium 1.7 mg/dl (1.6-2.3); Sodium 138 mmol/L (136-145); Total Protein,Serum 7.9 g/dl (6.3-8.2)
[2024-05-27 13:26] LABS: NT Pro Brain Natriuretic Pep. 83.4 pg/mL (0-125)
[2024-05-27 13:33] LABS: Procalcitonin 0.054 ng/mL (0.0-2.0)
[2024-05-27] MEDS: SODIUM CHLORIDE 0.9% 10ML SYR (RAD ONLY) 10 ML IV (13:42)
[2024-05-27] MEDS: IOPAMIDOL-370 (76%);100ML BOTTLE 75 ML IV (13:43)
[2024-05-27 13:50] LABS: INR 1.02 (0.9-1.1); Prothrombin Time 11.4 seconds (10.1-12.5)
[2024-05-27 14:02] LABS: Microscopic, Urine URINE MICROSCOPIC (MICROSCOPIC)
[2024-05-27 14:12] LABS: Appearance,Urine CLEAR (Clear); Bilirubin,Urine Negative (Negative); Blood, Urine Negative (Negative); Color,Urine YELLOW (Yellow); Glucose,Urine (UA) 3+ (Negative); Ketones,Urine Negative (Negative); Leukocyte Esterase,Urine Negative (Negative); Nitrate,Urine Negative (Negative); Protein,Urine Negative (Negative); Urobilinogen,Urine 0.2 EU/dl (0.2)
[2024-05-27 15:12] VITALS: BP 145/63; PULSE 63; RESP 20; TEMP 36.6; O2SAT 98
--- NOTE | 2024-06-03 18:31 | PC.NURSE ---
accessed chart for discharge summary at this time.
== END 2024-05-27 15:18 | disposition home or self-care (01) ==
PROVIDERS: Physician Assistant; Emergency Provider Emergency Medicine; PCP Physician Assistant
DX: R68.81 Early satiety (principal); R63.8 Other symptoms and signs concerning food and fluid intake; M54.9 Dorsalgia, unspecified; R10.11 Right upper quadrant pain; R10.12 Left upper quadrant pain; K59.89 Other specified functional intestinal disorders; K76.82 Hepatic encephalopathy; K75.81 Nonalcoholic steatohepatitis (NASH); K74.60 Unspecified cirrhosis of liver; E11.9 Type 2 diabetes mellitus without complications; Z72.0 Tobacco use; Z79.4 Long term (current) use of insulin
CPT/HCPCS: 74177; 80053; 81001; 82140; 83605; 83690; 83735; 83880; 84145; 85025; 85610; 96374; 99285; J2405; Q9967

== ENCOUNTER 2024-08-05 15:38 | Outpatient (CLI) | payer MEDICARE, SELFPAY ==
[2024-08-05 15:19] LABS: Microscopic, Urine URINE MICROSCOPIC (MICROSCOPIC)
[2024-08-05 15:38] LABS: Appearance,Urine CLOUDY (Clear); Bilirubin,Urine Negative (Negative); Blood, Urine 2+ (Negative); Color,Urine YELLOW (Yellow); Glucose,Urine (UA) 3+ (Negative); Ketones,Urine Negative (Negative); Leukocyte Esterase,Urine 1+ (Negative); Nitrate,Urine Negative (Negative); Protein,Urine Negative (Negative)
--- OUTSIDE RECORDS SUMMARY | 2024-08-05 15:54 | XMS_ITS | Referral Summary ---
Author Organization [employer] Address [address] [place] [address] Care Team Providers Care Pricing Associate Name Role Phone Unavailable Primary Care Provider Unavailabl e Social History Tobacco Use Types Packs/Day Years Used Date Smoking Tobacco: Never Assessed Comments Unknown Sex and Gender Information Value Date Recorded Sex Assigned at Female 08/26/2021 5:31 PM CDT Legal Sex Female 6:47 PM CDT Gender Identity Female 08/26/2021 5:31 PM CDT Sexual Orientation Not on file Plan of Treatment Not on file
--- OUTSIDE RECORDS SUMMARY | 2024-08-05 15:54 | XMS_ITS | Encounter Summary ---
Author Organization [employer] Address [address] [place] [address] Care Team Providers Care Media Relations Intern Name Role Phone Unavailable Primary Care Provider Unavailabl e Encounter Details Date Type Department Care Team (Late st Contact Info) Description 12/13/2018 Transcribed Document [facility] [address] [place] [address] ProviderKell MD Social History Tobacco Use Types Packs/Day Years Used Date Smoking Tobacco: Never Assessed Comments Unknown Sex and Gender Information Value Date Recorded Sex Assigned at Female 08/26/2021 5:31 PM CDT Legal Sex Female 6:47 PM CDT Gender Identity Female 08/26/2021 5:31 PM CDT Sexual Orientation Not on file documented as of this encounter Miscellaneous Notes * Cerner Conversion Note - Bear Maykel Curtis MD - 12/13/2018 5:21 PM EDT ED Discharge Entered On: 12/13/2018 16:22 EDT Performed On: 12/13/2018 16:21 EDT by Monica Godwin, assembly line upholsterer Process Patient Disposition : Discharge Personal Belongings With Patient : Yes Patient Education Completed : Yes Teaching Evaluation : Verbalizes understanding IV Discontinued : Yes Nursing Documentation Completed : Yes Monica Godwin, RN - 12/13/2018 16:21 EDT documented in this encounter Plan of Treatment Not on file documented as of this encounter Visit Diagnoses Not on filedocumented in this encounter
--- OUTSIDE RECORDS SUMMARY | 2024-08-05 15:54 | XMS_ITS | Clinical Summary ---
Author Organization [employer] Address [address] [place] [address] Care Team Providers Care Shop Helper Name Role Phone Unavailable Primary Care Provider [...]
--- OUTSIDE RECORDS SUMMARY | 2024-08-05 15:55 | XMS_ITS | Encounter Summary ---
Author Organization [employer] Address [address] [place] [address] Care Team Providers Care Metal Room Dental Technician Name Role Phone Unavailable Primary Care Provider Unavailabl e Encounter Details Date Type Department Care Team (Late st Contact Info) Description 12/13/2018 Transcribed Document [facility] Radiology [address] [place] [address] Provider, Kell Brar MD Social History Tobacco Use Types Packs/Day Years Used Date Smoking Tobacco: Never Assessed Comments Unknown Sex and Gender Information Value Date Recorded Sex Assigned at Female 08/26/2021 5:31 PM CDT Legal Sex Female 6:47 PM CDT Gender Identity Female 08/26/2021 5:31 PM CDT Sexual Orientation Not on file documented as of this encounter Miscellaneous Notes * Cerner Conversion Note - [facility] Maykel Curtis MD - 12/13/2018 12:00 PM EDT ED Triage Entered On: 12/13/2018 11:08 EDT Performed On: 12/13/2018 11:06 EDT by CATA COBB RN ED Triage Across the Room Triage Date/Time : 12/13/2018 11:06 EDT Chief Complaint : PT arrive per POV with mental status changes CATA COBB RN - 12/13/2018 11:06 EDT DCP GENERIC CODE Tracking Acuity : 2 - Emergent Tracking Group : [facility] ED [place] CATA COBB RN - 12/13/2018 11:06 EDT Mode of Arrival : Wheelchair Transported to ED by : Private vehicle To Room Via : Wheelchair Accompanied By : Spouse ED Vital Signs : Document Height & Weight : Document ED Allergies : Document ED Reason for Visit : Document CATA COBB RN - 12/13/2018 11:06 EDT Infectious Disease History Infectious Disease History : None Fever/Chills Last 48 Hours : No Travel To Regions with Travel Advisories : No Travel Outside [place] Within Last 30 Days : No Contact With Traveler to Advisory Region : No Tuberculosis Symptoms : None CATA COBB RN - 12/13/2018 11:06 EDT Vital Signs ED Temperature Source : Tympanic Temperature Mode : Fahrenheit Temperature, Fahrenheit : 99 Deg F Clinical Temperature, C : 37.2 Deg C Oxygen Therapy Mode : Nasal cannula Peripheral Pulse Rate : 86 bpm Respiratory Rate : 60 Breaths/Min (HI) Systolic Blood Pressure : 124 mmHg Diastolic Blood Pressure : 60 mmHg Oxygen Saturation : 93 % (LOW) Oxygen Flow Rate : 3 Liter/Min CATA COBB RN - 12/13/2018 11:06 EDT Allergy (As Of: 12/13/2018 11:08:43 EDT) Allergies (Active) No Known Medication Allergies Estimated Onset Date: Unspecified ; Created By: CATA COBB RN; Reaction Status: Active ; Category: Drug ; Substance: No Known Medication Allergies ; Type: Allergy ; Updated By: CATA COBB RN; Reviewed Date: 12/13/2018 11:08 EDT Diagnosis Control ED (As Of: 12/13/2018 11:08:43 EDT) Diagnoses(Active) Altered mental status Date: 12/13/2018 ; Diagnosis Type: Reason For Visit ; Confirmation: Confirmed ; Clinical Dx: Altered mental status ; Classification: Medical ; Clinical Service: Emergency medicine ; Code: PNED ; Probability: 0 ; Diagnosis Code: [id number] ED Height and Weight Height Source : Stated Height Entry Format : [place] Height, Feet : 5 ft(Converted to: 152 cm, 60 Inch) Height, Inches : 1 Inch(Converted to: 0 ft 1 Inch, 2.54 cm) Clinical Height : 154.94 cm Weight Source, ED : Critical estimated dosing weight Weight Entry Format : [place] Weight, Pounds : 130 lb Clinical Dosing Weight : 59.09 kg Body Surface Area (BSA) : 1.57 m2 Body Mass Index : 24.6 kg/m2 (HI) [place] Body Weight (IBW) : 47.45 kg CATA COBB RN - 12/13/2018 11:06 EDT Electronically signed by Shu, [facility] Conversion [employer]ed [employer] Board Reworker Cerner at 07/20/2022 11:13 AM CDT documented in this encounter Plan of Treatment Not on file documented as of this encounter Visit Diagnoses Not on filedocumented in this encounter
--- OUTSIDE RECORDS SUMMARY | 2024-08-05 15:55 | XMS_ITS | Data Portability ---
Author Organization [employer] [facility] [employer] Address [address] [facility] [place] [address] Care Team Providers Care Sales Receptionist Name Role Phone ARACELIS LEA Referring Provider [phone] LUCAS ABRAMS Referring Provider BERNICE ORDONEZ It [employer] Specialist Assessment Encounter Date Assessment Date Assessment LastModified by Organization Details LastModified Time 03/17/2023 03/17/2023 Patient with longstanding history of bilateral hand Dupuytren's disease, but now with further progression and exacerbation of functional limitations over time. Discussion was had with patient in clinic today regarding diagnosis of Duputren's disease and treatment options. I explained if a patient has a normal tabletop test with MCP flexion contractures less then 30 and no IP joint flexion contractures, then my recommendation is for observation. However, at this time the patient has progressive contractures, leading to functional limitations with the hands. The patient reported that this contracture is bothersome as it limits hand function and thus was interested in discussing treatment options. Specific options include collagenase injection, needle aponeurotomy, and open fasciectomy. We discussed the risk and benefits of each potential treatment option. Patient ultimately elected to proceed with collagenase injection followed 2 days later by manipulation in the office. Once we have insurance approval, we will contact the patient to be scheduled for a Xiaflex injection for the involved cord(s). Plan to begin first with her right hand. [email or web address] Not available 03/17/2023 10:49:32 05/09/2023 05/09/2023 Dupuytren's disease affecting the right long, ring, and small fingers with palpable and visible cord(s). After evaluation in the office today the decision was made to inject the involved cords. Risk and benefits of the procedure were explained to the patient in clinic today, including but not limited to tendon rupture, allergic reaction, lymphadenopathy, swelling/bruising , and skin tear(s). Patient expressed understanding and all questions were answered to the patient's satisfaction. A Xiaflex injection was given according to manufactures instructions without complication. A bulky bandage was applied with instruction to keep the hand clean and dry. Patient will follow up for the manipulation procedure in two days. [email or web address] Not available 05/09/2023 12:44:01 05/11/2023 05/11/2023 Patient was placed in a finger extension splint to wear over the next 24 hours with transition to nighttime splinting thereafter for the next 4 weeks. Patient was provided with an instruction sheet to begin working on home exercises for the hand and fingers following the 24-hour period of splinting. Patient is unable to take anti-inflammatory medication, thus I provided her with a short course of tramadol to use as needed for any postprocedural pain. Patient will follow-up in 4 weeks for repeat assessment, but can call sooner with additional questions or concerns. [email or web address] Not available 05/11/2023 12:49:27 Plan of Treatment Reminders Order Date Submit Date Provider Last Modified By Organization Details Last Modified Time Details Appointments None recorded. Lab None recorded. Referral None recorded. Procedures None recorded. Surgeries None recorded. Imaging None recorded. Medication Orders tramadol 50 mg tablet 2023 024 [place] [id number], [address] [place], [id number], 12:50:09 omeprazole 40 mg capsule,del ayed release 2023 024 [email or web address] 1 [facility][id number], [address], [place], [id number], 4 12:25:25 famotidine 20 mg tablet 2023 024 [email or web address] 1 [facility][id number], [address], [place], [id number], 4 12:25:25 Patient TargetsNo targets recorded. Patient Instructions Encounter Date Encounter Id Patient Instructions Last Modified By Organization Details Last Modified Time 03/14/2023 [id number] 1. Laryngoscopy performed ; clinical photos obtained. Full risks, complications, and benefits of non-operative intervention have been thoroughly discussed. Understanding was expressed, informed consent given, and we will proceed with the discussed treatment plan. There were no questions for me at the end of the office visit. 2. Rx-Omeprazole 40mg QAM ; Famotidine 20mg QPM 3. Continue with GERD precautions 4. F/u in 6-8 weeks with repeat flex scope. [email or web address] Not available 03/14/2023 11:10:38 She has chronic hoarseness and intermittent throat pain and discomfort on the left side and she had recent EGD and esophageal dilation and has longstanding history of GERD. Her fiberoptic laryngoscopy today shows a contact granuloma and surrounding ulceration and inflammation on the left arytenoid presumably related to her GERD. I am increasing her omeprazole from 20 mg daily to 40 mg daily and I am also adding nighttime famotidine and I want to repeat her fiberoptic laryngoscopy in 6 to 8 weeks. [email or web address] Not available 03/14/2023 11:15:47 Reason for Referral None Reported. Problems No Known Problems Procedures Surgical History Date Name Laterality Status Provider Name and Address Organization Details Recorded Time 06/20/19 24 Laryngoscopy Flex cancelled Chrissy Paige [facility] 06/19/2023 09:32:12 05/11/19 24 Orthotic, WHFO, Static Prefab completed CARIN PINEDA JR, OTR/L, CHT [address] [place], [address], [facility] 05/11/2023 13:27:38 05/11/19 24 Dupuytren's Contracture Manipulation completed REBECA MEDINA MD [address] [place], [address], [facility] 05/11/2023 12:48:40 05/09/19 24 Xiaflex/Dupuytre n's Contracture Injection completed REBECA MEDINA MD [address] [place], [address], [facility] 05/09/2023 12:43:47 03/14/19 24 Laryngoscopy Flex completed Chrissy Cooperon [facility] 03/14/2023 11:09:01 endoscopic procedure of upper limb completed Theresa Fort Wingate [facility] 03/14/2023 10:37:41 Imaging Results None recorded. Procedure Notes None recorded. Medical Equipment None Reported. Allergies Allergen ID Allergen Name Allergen Category Reaction Reaction Severity Criticality Documentation Date Start Date Code Code System Note Provider Name and Address Organization Details Recorded Time [id number] Biaxin medicatio n Not available Not available Not available 03/14/2023 9 RxNorm [facility] 10:34:59 Medications Name Sig Start Date Stop Date Status Note LastModified by Organization Details LastModified Time fluoxetine 40 mg capsule TAKE 1 CAPSULE BY MOUTH TWICE DAILY active Not Available Not Available No t Available cyclobenzap rine 10 mg tablet TAKE 1 TABLET BY MOUTH THREE TIMES DAILY NEEDED active Not Available Not Available No t Available tizanidine 4 mg tablet TAKE 1 TABLET BY MOUTH TWICE DAILY active Not Available Not Available No t Available fluconazole 150 mg tablet TAKE 1 TABLET BY MOUTH DAILY active Not Available Not Available No t Available fluconazole 200 mg tablet TAKE 1 TABLET BY MOUTH DAILY active Not Available Not Available No t Available ondansetron HCl 4 mg tablet TAKE 1 TABLET BY MOUTH EVERY 6 HOURS NEEDED FOR NAUSEA active Not Available Not Available No t Available metoprolol succinate ER 100 mg tablet,exte nded release 24 hr TAKE 1 TABLET BY MOUTH DAILY active Not Available Not Available No t Available metronidazo le 250 mg tablet TAKE 1 TABLET BY MOUTH FOUR TIMES DAILY FOR 10 DAYS DIRECTED 03/14 completed Not Available Not Available Not Available omeprazole 40 mg capsule,del ayed release Take 1 capsule every day by oral route in the morning for 30 days. 2023 active Not Available Not Available Not Avai lable doxycycline monohydrate 100 mg tablet TAKE 1 TABLET BY MOUTH TWICE DAILY FOR 10 DAYS active Not Available Not Available No t Available tramadol 50 mg tablet TAKE 1 TABLET BY MOUTH EVERY 4 TO 6 HOURS NEEDED FOR UNCONTROL LED PAIN active Not Available Not Available No t Available amitriptyli ne 50 mg tablet TAKE 1 TABLET BY MOUTH EVERY DAY AT BEDTIME active Not Available Not Available No t Available famotidine 20 mg tablet TAKE 1 TABLET BY MOUTH EVERY DAY IN THE EVENING active Not Available Not Available No t Available ropinirole 2 mg tablet TAKE 1 TABLET BY MOUTH AT BEDTIME active Not Available Not Available No t Available simvastatin 20 mg tablet TAKE 1 TABLET BY MOUTH DAILY active Not Available Not Available No t Available bismuth subsalicyla te 262 mg chewable tablet CHEW AND SWALLOW 2 TABLETS BY MOUTH FOUR TIMES DAILY FOR 10 DAYS DIRECTED 03/14 completed Not Available Not Available Not Available omeprazole 20 mg capsule,del ayed release TAKE 1 CAPSULE BY MOUTH TWICE DAILY FOR 10 DAYS 03/14 completed Not Available Not Available Not Available methylpredn isolone 4 mg tablets in a dose pack FOLLOW PACKAGE DIRECTION S active Not Available Not Available No t Available metformin ER 500 mg tablet,exte nded release 24 hr TAKE 1 TABLET BY MOUTH TWICE DAILY active Not Available Not Available No t Available metoclopram myra 10 mg tablet active Not Available Not Available Not Available nitrofurant oin monohydrate /macrocryst als 100 mg capsule active Not Available Not Available Not Available lactulose 10 gram/15 mL oral solution TAKE 5 ML BY MOUTH DAILY active Not Available Not Available No t Available tizanidine 6 mg capsule active Not Available Not Available Not Available Myrbetriq 25 mg tablet,exte nded release TAKE 1 TABLET BY MOUTH DAILY active Not Available Not Available No t Available Linzess 145 mcg capsule TAKE 1 CAPSULE BY MOUTH EVERY MORNING 30 TO 60 MINUTES BEFORE A MEAL active Not Available Not Available No t Available Farxiga 10 mg tablet TAKE 1 TABLET BY MOUTH DAILY active Not Available Not Available No t Available Jardiance 25 mg tablet TAKE 1 TABLET BY MOUTH DAILY active Not Available Not Available No t Available Wanda Cheatham U-300 Insulin 300 unit/mL (1.5 mL) subcutaneou s pen ADMINISTE R 50 UNITS UNDER THE SKIN TWICE DAILY IN THE MORNING AND WITH THE EVENING MEAL active Not Available Not Available No t Available Vitals Date Recorded Body weight Body mass index (BMI) Body height Body temperature Heart rate Systolic blood pressure Diastolic blood pressure Provider Name and Address Organization Details Last Updated DateTime 4 50903.8 1 g 23.4 kg/m2 165.1 cm 97.6 [degF] 102 /min 133 mm[Hg] 68 mm[Hg] [facility] 4 10:40:51 Date Recorded Body height Body mass index (BMI) Body weight Provider Name and Address Organization Details Last Updated DateTime 03/17/2023 165.1 cm 23.3 kg/m2 09132.93 g Rica Spicer [facility] 03/17/2023 09:28:26 Date Recorded Body height Body mass index (BMI) Body weight Provider Name and Address Organization Details Last Updated DateTime 05/09/2023 165.1 cm 23.3 kg/m2 90727.93 g Shannon Gonzalez [facility] 05/09/2023 11:46:08 Date Recorded Body height Body mass index (BMI) Body weight Provider Name and Address Organization Details Last Updated DateTime 05/11/2023 165.1 cm 23.3 kg/m2 96473.93 g Anuj Moncada [facility] 12:02:01 Social History None recorded. Functional Status Question Answer Note LastModified by Organization D etails LastModified Time What is your level of alcohol consumption? None [email or web address] Information not available 03/14/2023 Mental Status None recorded. Family History Nothing Reported. Medical History Condition Response Diabetes Y Arthritis Y Hypertension Y Depression Y Gynecological HistoryNo gynecological history recorded. Obstetrics History GPAL:G 0 P 0 0 0 0 Past Encounters Encounter ID Performer Location Encounter Start Date Encounter Closed Date Diagnosis/Indication Diagnosis SNOMED-CT Code Diagnosis ICD10 Code Diagnosis Note [id number] SHERLYN HARTLEY MD [place] [facility] [address] [place] [address] 03/14/2023 10:15:25 03/14/2023 11:34:34 Chronic hoarseness 0407789573 105 R49.0 Stricture of esophagus 48141608 K22.2 Gastroesop hageal reflux disease 052106587 K21.00 Deviated nasal septum 12 8527207 J34.2 Neck pain 36248594 M54.2 Granuloma of vocal cords 91215069 J38.3 - Contact granuloma of left arytenoid noted. Edema of vocal cord 8707 34985 J38.3 [id number] REBECA MEDINA MD [facility] [address] [place] [address] 03/17/2023 09:18:38 03/17/2023 10:25:10 Dupuytrens contracture of bilateral hands 6544442349 2318101 M72.0 Right hand:-Long finger MP 50 , PIP 70 -Ring finger MP 30 , PIP 60 -Small finger MP 15 , PIP 80 Left hand:-Long finger MP 30 , PIP 15 -Ring finger MP 20 , PIP 10 [id number] REBECA MEDINA MD [facility] [address] [place] [address] 05/09/2023 11:04:02 05/09/2023 13:01:57 Dupuytrens contracture of bilateral hands 5407178865 5018655 M72.0 Right hand:-Long finger MP 50 , PIP 70 -Ring finger MP 30 , PIP 60 -Small finger MP 15 , PIP 80 Left hand:-Long finger MP 30 , PIP 15 -Ring finger MP 20 , PIP 10 [id number] REBECA MEDINA MD [facility] [address] [address] 05/11/2023 10:53:09 05/11/2023 12:44:36 Dupuytrens contracture of bilateral hands 4397625380 5540428 M72.0 Right hand status post Xiaflex manipulati on procedure on 05/11/2023: -Long finger MP 50 , PIP 70 - corrected to MP 0 , PIP 0 -Ring finger MP 30 , PIP 60 - corrected to MP 0 , PIP 0 -Small finger MP 15 , PIP 80 - corre Left hand:-Long finger MP 30 , PIP 15 -Ring finger MP 20 , PIP 10 [id number] CARIN PINEDA JR, OTR/L, CHT PHYSICAL THERAPY / HAND THERAPY [facility] [address] [place] [place] [address] 05/11/2023 13:04:23 05/12/2023 05:19:10 Dupuytren's contracture of finger 120184540 M72.0 Health Concerns Section Related Observation LastModified by Organization Detai ls LastModified Time None Recorded Concern Status LastModified by Organization Details LastModified Time None Recorded Advance Directives Directive None Recorded Payers Insurance Date Sequence Insurance Name Policy Number Policy Garcia Covered Member ID Garcia Member ID Guarantor Name 06/17/2023 1 THOMAS: SHANTELLE [facility]OBLEY OF [facility] (MEDICARE REPLACEMENT HMO) [id number] Linh Rosales [id number] Linh Rosales Notes Date Note Type Note Provider Name and Address Organization Details Recorded Time 03/14/2023 text/html Linh comes in today for consultation at the request of Dr.Benjamin Lea for an evaluation of chronic hoarseness and left sided neck pain onset several years ago. She sees Dr. Bernice Ordonez as her GI specialist and had dilation of the esophagus with her most recent EGD. She did have a polyp removed from her Colon as well. She does have a history of acid reflux which she has treated for many years now. She is currently taking Omeprazole daily. She denies a history of tobacco use. She does have chronic dry mouth which bothers her. Linh has no further concerns. SHERLYN HARTLEY MD [address] [place] [address], [address], [facility] 03/14/2023 11:15:52 03/17/2023 text/html Patient is a 62 y/o RHD female who presents to the clinic for evaluation of bilateral hand contractures related to known Dupuytren's disease. Reports symptoms present over the last 11-12 years with gradual worsening over time. Unknown family ancestry, but does report a strong family history of Dupuytren's disease including her mom and uncle. She has a history of insulin-dependent diabetes. Primary Care Physician: Dr. Lucas Lea Hand dominance: RightLocation: Bilateral Hand Pain level: 8 /10 Duration: 12 years Recent Surgery: NoProcedure:Date of surgery:Surgeon(If Known): In office procedure? No Previous upper extremity surgery? YesProcedure: lt carpal tunnelApproximate date of surgery: 2011Surgeon (if known): [facility] Colni Arteaga you or an immediate family member ever seen our hand surgeons before? No Currently employed?: Disabled Patient arrived in: cast splint surgical dressing OTC brace n/a Surgical Resident Strength: right: left: New: Ms. Rosales is here for evaluation of rebeca hand contractures. Stated she has had them for years and just recently have gotten worse. REBECA MEDINA [place] [facility] [place], [address], [facility] 03/17/2023 10:49:34 05/09/2023 text/html Patient presents back for Xiaflex procedure in the right long, ring, and small fingers. Primary Care Physician: Dr. Lucas Lea Hand dominance: RightLocation: Bilateral Hand Pain level: 7 /10 Duration: 12 years Recent Surgery: NoProcedure:Date of surgery:Surgeon(If Known): In office procedure? No Previous upper extremity surgery? YesProcedure: lt carpal tunnelApproximate date of surgery: 2011Surgeon (if known): [facility]. Colin Arteaga you or an immediate family member ever seen our hand surgeons before? Yes Currently employed?: Disabled Patient arrived in: cast splint surgical dressing OTC brace n/a Surgical Resident Strength: right: left: New: Ms. Rosales is here for xiaflex injection in the right hand REBECA MEDINA MD [address] [place], [address], [facility] 05/09/2023 12:44:22 05/11/2023 text/html Patient returns to the clinic today for Xiaflex manipulation procedure. Reports she is well with no complaints just some mild soreness in the hand. Primary Care Physician: Dr. Lucas Lea Hand dominance: RightLocation: Bilateral Hand Pain level: 1 /10 Duration: 12 years Recent Surgery: NoProcedure:Date of surgery:Surgeon(If Known): In office procedure? No Previous upper extremity surgery? YesProcedure: lt carpal tunnelApproximate date of surgery: 2011Surgeon (if known): [facility]. Colin Arteaga you or an immediate family member ever seen our hand surgeons before? Yes Currently employed?: Disabled Patient arrived in: cast splint surgical dressing OTC brace n/a Surgical Resident Strength: right: left: New: Ms. Rosales is here for a follow-up REBECA MEDINA MD [address] [place], [address], [facility] 05/11/2023 12:50:07 OBGyn Episode No OBEpisode recorded.
--- OUTSIDE RECORDS SUMMARY | 2024-08-05 15:55 | XMS_ITS | Encounter Summary ---
Author Organization [employer] Address [address] [place] [address] Care Team Providers Care Director Federal Name Role Phone Unavailable Primary Care Provider Unavailabl e Encounter Details Date Type Department Care Team (Late st Contact Info) Description 12/13/2018 Transcribed Document [facility] [address] [place] [address] Yung Rose MD [facility] Dept. [place] [address] Social History Tobacco Use Types Packs/Day Years Used Date Smoking Tobacco: Never Assessed Comments Unknown Sex and Gender Information Value Date Recorded Sex Assigned at Female 08/26/2021 5:31 PM CDT Legal Sex Female 6:47 PM CDT Gender Identity Female 08/26/2021 5:31 PM CDT Sexual Orientation Not on file documented as of this encounter Miscellaneous Notes * [employer]ner Conversion Note - Yung Rose MD - 12/13/2018 4:50 PM EDT CR Chest 1 Vw Portable Ordered: 12/13/2018 Modified Reason for Exam: altered mental status 12/13/2018 14:30 12/13/2018 15:50 (YUNG ROSE MD-EMR) Reviewed by Provider, No further action required x1 Electronically signed by Kell Ireland Conversion Utility Sales And Service Manager [employer] at 07/20/2022 11:13 AM CDT documented in this encounter Plan of Treatment Not on file documented as of this encounter Visit Diagnoses Not on filedocumented in this encounter
--- OUTSIDE RECORDS SUMMARY | 2024-08-05 15:55 | XMS_ITS | Encounter Summary ---
Author Organization [employer] Address [address] [place] [id number] Care Team Providers Care Cell Preparer Name Role Phone Unavailable Primary Care Provider Unavailabl e Encounter Details Date Type Department Care Team (Late st Contact Info) Description 12/13/2018 Transcribed Document [facility] Radiology [address] [place] [address] Provider, Kell Brar MD Social [...] Miscellaneous Notes * Cerner Conversion Note - [facility] Maykel Curtis MD - 12/13/2018 12:06 PM EDT Patient: LINH MARTINEZ Age: 58 years Sex: Female : 1960 Associated Diagnoses: Altered mental status; Hyperglycemia; Medication reaction Author: CHAD GATICA MD-EMR Basic Information Time seen: Date & time 12/13/2018 11:00:00, Immediately upon arrival, Voice recognition / rv repair technician technology was used for some documentation in this chart in an attempt to mitigate substantial inefficiencies created by this electronic health record technology. As a result, there may be some typos and/or non-sensical language introduced into the chart that either are overlooked in editing/review and/or that I am unable to correct because patient care needs require me to prioritize my attention to bedside patient care rather than electronic documentation.. History source: Patient, spouse. Arrival mode: Private vehicle. History limitation: Cognitive impairment. History of Present Illness ED security said patient needed help out of car in front of ER. I went out with security and RN. Patient seated in front passenger seat of [employer]. She was somnolent, but arousable. Pupils dilated, not constricted. She speaks French, but only speaks Anguillan. We got her out of car and brought her into ER. Patient denies pain. She denies taking too much of her medication. No outward signs of trauma. No clear explanation for her symptoms. Review of Systems Constitutional symptoms: Negative except as documented in HPI. Skin symptoms: Negative except as documented in HPI. Eye symptoms: Negative except as documented in HPI. ENMT symptoms: Negative except as documented in HPI. Respiratory symptoms: No shortness of breath, Cardiovascular symptoms: No chest pain, Gastrointestinal symptoms: No abdominal pain, Genitourinary symptoms: Negative except as documented in HPI. Musculoskeletal symptoms: Negative except as documented in HPI. Neurologic symptoms: Altered level of consciousness, No headache, Psychiatric symptoms: Negative except as documented in HPI. Additional review of systems information: All other systems reviewed and otherwise negative. Health Status Allergies: No active allergies have been recorded.. Medications: No meds come up with external query. Past Medical/ Family/ Social History Medical history See problem list below which I have reviewed.. Surgical history: No active procedure history items have been selected or recorded., Reviewed as documented in chart. Family history: Not significant. Social history: Reviewed as documented in chart. Problem list: No qualifying data available , per nurse's notes. Physical Examination Vital Signs Vital Measurements 12/13/2018 11:06 EDT Systolic Blood Pressure 124 mmHg Diastolic Blood Pressure 60 mmHg Temperature Source Tympanic Temperature Mode Fahrenheit Temperature, Fahrenheit 99 Deg F Clinical Temperature, C 37.2 Deg C Peripheral Pulse Rate 86 bpm Respiratory Rate 60 Breaths/Min HI Oxygen Saturation 93 % LOW Oxygen Therapy Mode Nasal cannula Oxygen Flow Rate 3 Liter/Min . Height and Weight 12/13/2018 11:06 EDT Height Source Stated Height Entry Format [place] Height/Length, BELARUSIAN (ft) 5 ft Height/Length BELARUSIAN 1 Inch CLINICALHEIGHT 154.94 cm [place] Body Weight 47.45 kg Weight Source, ED Critical estimated dosing weight Weight Entry Format [place] Weight French lb 130 lb CLINICALWEIGHT 59.09 kg Body Surface Area (BSA) 1.57 m2 Body Mass Index 24.6 kg/m2 HI . General: Alert, moderate distress. Ilia coma scale: Total score: Total score: 15. Neurological: No focal neurological deficit observed, Level of consciousness: Lethargic, Cognitive function: To person, Motor strength: Equal bilaterally, equal strength but she is globally weak. Skin: Warm, dry. Head: Normocephalic, atraumatic. Neck: Supple, trachea midline. Eye: Pupils are equal, round and reactive to light, extraocular movements are intact, pupils midrange to dilated, not pinpoint. Cardiovascular: Regular rate and rhythm, Normal peripheral perfusion. Respiratory: Lungs are clear to auscultation, respirations are non-labored, breath sounds are equal. Gastrointestinal: Soft, Nontender, Non distended. Musculoskeletal: Normal ROM. Psychiatric: Cooperative. Medical Decision Making Differential Diagnosis: Confusion, cerebral vascular accident, hypoglycemia, urinary tract infection, pneumonia, alcohol intoxication, drug abuse, delirium, dehydration, electrolyte imbalance. Rationale: No clear explanation for her altered mental status. Will begin aggressive eval. . Documents reviewed: Emergency department nurses' notes, No prior records here.. Electrocardiogram: Time 12/13/2018 11:16:00, rate 89, normal sinus rhythm, EP Interp, No acute ischemia or infarction. No STEMI. QTc 491 ms. Results review: Lab results : Lab Results 12/13/2018 11:50 EDT Device Comment 1 Notified MD CALL[place]AY Glucose POC2 478 mg/dL CRIT 12/13/2018 11:23 EDT Sodium Level 136 mmol/L Potassium Level 4.4 mmol/L Chloride Level 102 mmol/L Carbon Dioxide Level 27 mmol/L Anion Gap 11 Glucose Level 458 mg/dL CRIT Blood Urea Nitrogen 12 mg/dL Creatinine Level 0.84 mg/dL eGFR >60 mL/min/1.73m2 eGFR NonAfrican >60 mL/min/1.73m2 Bun/Creatinine 14.3 Calcium Level 8.9 mg/dL Protein Total 7.1 Gram/dL Albumin Level 3.1 Gram/dL LOW Globulin 4.0 Gram/dL A/G Ratio 0.8 LOW Bilirubin Total 0.5 mg/dL Alk Phos 139 Units/Liter HI AST 54 Units/Liter HI ALT 50 Units/Liter Ammonia Level 36.0 uMol/L HI Troponin I Ultra <0.015 ng/mL WBC 6.7 K/uL RBC 4.34 Million/uL Hgb 13.5 Gram/dL Hct 40.2 % MCV 92.6 fL MCH 31.1 pg MCHC 33.6 Gram/dL Platelet Count 210 K/uL MPV 10.3 fL RDW 12.7 % Neut % 51.3 % Neut # 3.43 K/uL Lymph % 35.4 % Lymph # 2.37 K/uL [place] % 9.0 % [place] # 0.60 K/uL Eos % 3.6 % Eos # 0.24 K/uL Baso % 0.6 % Baso # 0.04 K/uL Slide Review No IG# 0 x10(3)/uL IG% 0 % Urine Type U Cath Urine Color Yellow Urine Appearance Clear Urine Specific [place] 1.038 HI Urine pH Dipstick 5.5 LOW Urine Leukocyte Esterase Negative Urine Nitrite Negative Urine Protein Dipstick Negative Urine Glucose Dipstick >=1000 Urine Ketones Dipstick Trace Urine Urobilinogen Dipstick 0.2 EU/dL Urine Bilirubin Dipstick Negative Urine Blood Dipstick Negative Ur RBC None Seen Ur WBC 0-2 /HPF Ur Bacteria None Seen Ur Squamous Epithelial Cells 0-2 /HPF UDS pH 5.8 NA UDS Amp Negative UDS [place] Negative UDS Benzo Negative UDS Vicky Negative UDS Meth Negative UDS Opi Negative UDS Oxy Negative UDS PCP Negative UDS TCA Positive UDS THC Negative Buprenorphine Screen, Urine Negative Carisoprodol Screen, Urine Negative Fentanyl, Urine Negative Heroin Metab (6AM) by LC-MS/MS, Urine Negative Meperidine Screen, Urine Negative Propoxyphene, Urine Negative SpGravity, Urine 1.011 NA Tramadol Screen, Urine Negative Alcohol <3 mg/dL NA UDS Creatinine, Toxicology 66.1 mg/dL NA . Radiology results: Radiology Results (Last 48 hours) [id number] -- 12/13/2018 11:00 CR Chest 1 Vw Portable (12/13/2018 11:25) Result: PORTABLE CHEST 12/13/2018 11:10 AM HISTORY: Altered mental status.COMPARISON: None.FINDINGS: The heart is normal in size . The mediastinum isunremarkable . Diffuse interstitial changes are probably chronic . Thelungs are otherwise clear . There is no pneumothorax . The osseousstructures are unremarkable . IMPRESSION: No acute cardiopulmonary process . Continued follow-up is recommended .Images reviewed, interpreted, and dictated by Dr. Prasad Ocampo.Transcribed by Ramesh Trejo PA-C, R.T. (N), Shawn Tinoco. CT Head WO (12/13/2018 12:59) Result: HEAD CT 12/13/2018 11:00 AM HISTORY: Altered mental status.COMPARISON: None.TECHNIQUE: Multiple axial CT images were performed from the foramenmagnum to the vertex. This study was performed with techniques to keepradiation doses as low as reasonably achievable, (ALARA). Individualizeddose reduction techniques using automated exposure control or adjustmentof mA and/or kV according to the patient size were employed.FINDINGS: The ventricles are normal in size . There is no evidence ofhemorrhage . No masses are identified . No extra-axial fluid isseen . The sinuses demonstrate sphenoid and ethmoid mucosal thickening. IMPRESSION: No acute intracranial process . Images reviewed, interpreted, and dictated by Dr. Prasad Ocampo.Transcribed by Nadiya Craven (R). . Reexamination/ Reevaluation 1201 - Except for glucose of >470, no explanation found on CXR or labs. UDS still pending. I have added a CT brain. 1457 - She is much more alert now. It sounds like she started temazepam last week for insomnia. She took it at 1am but never really slept. She got up at 4:30 am to help a family member by driving him for an eye procedure. He came here to the ER earlier. He says she was driving like she was drunk and he told her he had to take over so he drove instead. It sounds like she was overmedicated, perhaps from temazepam. All her tests here have been fine. Her behavior and evolution here in the ER are most consistent with overmedication. No other explanation seems likely. She tells me her sugar is commonly 300 -400 + so that is not abnormal for her. She has numerous family here now to interact with her. We have sat her up and are feeding her a little. If she continues to be fine and more alert, we will d/c with copies of her test to outpatient follow-up. 9187 - Doing well. Ready for d/c. Impression and Plan Diagnosis Altered mental status - Discharge, Emergency medicine, Medical Hyperglycemia - Discharge, Emergency medicine, Medical Medication reaction - Discharge, Emergency medicine, Medical Plan Condition: Improved, Stable. Disposition: Medically cleared, Discharged Admit/Transfer/Discharge: Discharge (Order): Start: 12/13/2018 15:58 EDT, Discharge to: Home. Patient was given the following educational materials: Hyperglycemia, Confusion. Follow up with: COSMO ABRAMS Within 2 to 3 days. Counseled: Patient, Family, Regarding diagnosis, Regarding diagnostic results, Regarding treatment plan, Regarding prescription, Patient indicated understanding of instructions. documented in this encounter Plan of Treatment Not on file documented as of this encounter Visit Diagnoses Not on filedocumented in this encounter
--- OUTSIDE RECORDS SUMMARY | 2024-08-05 15:55 | XMS_ITS | Encounter Summary ---
Author Organization [email or web address] Address [address] [place] [address] Care Team Providers Care Electric Motor Mechanic Name Role Phone Unavailable Primary Care Provider Unavailabl e Encounter Details Date Type Department Care Team (Late st Contact Info) Description 12/13/2018 Transcribed Document [facility] Radiology [address] [place] [address] Provider, Kell Brar MD Social [...] Miscellaneous Notes * Cerner Conversion Note - [facility] Maykel ProviderMD - 12/13/2018 12:00 PM EDT ED Assessment Entered On: 12/13/2018 12:12 EDT Performed On: 12/13/2018 11:09 EDT by Monica Godwin, SEASONING MIXER Quick Look Assessment Level of Consciousness : Alert Affect/Behavior : Calm, Cooperative Orientation : Oriented x 4 Skin Color : Other: [place] Skin Temperature : Warm Skin Description : Dry Monica Godwin, RN - 12/13/2018 12:09 EDT ED General-Functional Assess Communication Barrier : None Primary Language : Beninese Any Spiritual/Cultural Needs or Requests : No Currently in Unsafe Situation : No Monica Godwin, RN - 12/13/2018 12:09 EDT Social Habits Smoking Status : Never (less than 100 in lifetime; none in last 30 days) Smokeless Tobacco Status : Never Desires Tobacco Cessation Calc : 0 Monica Godwin RN - 12/13/2018 12:09 EDT Social History (As Of: 12/13/2018 12:12:27 EDT) Neurologic ASMT, ED Neurologic Assessment WDL : WDL with exceptions Level of Consciousness : Drowsy, Lethargic Pupil Description, Left : Dilated Pupil Reaction, Left : Brisk Pupil Description, Right : Dilated Pupil Reaction, Right : Brisk [place] Coma Scale Link : Open GCS Neurological Assessment Comment : Pt with AMS that started this morning. P lethargic and drowsy. States that she took some medication this morning. Responds to sound and painful stimuli/sudden movements. Monica Godwin, RN - 12/13/2018 12:09 EDT Ilia Coma [place] Best Motor Response : Normal flexion Ilia Best Verbal Response : Confused [place] Eye Opening Response : To sound [place] Coma Score : 11 Monica Godwin, RN - 12/13/2018 12:09 EDT documented in this encounter Plan of Treatment Not on file documented as of this encounter Visit Diagnoses Not on filedocumented in this encounter
--- OUTSIDE RECORDS SUMMARY | 2024-08-05 15:55 | XMS_ITS | Encounter Summary ---
Author Organization [employer] Address [address] [place] [address] Care Team Providers Care Bar Host Name Role Phone Unavailable Primary Care Provider Unavailabl e Encounter Details Date Type Department Care Team (Late st Contact Info) Description 12/13/2018 Transcribed Document [address] [id number] Provider, Kell Brar MD Social History [...] Miscellaneous Notes * Cerner Conversion Note - [facility] Maykel Curtis MD - 12/13/2018 5:13 PM EDT [address] [address] LINH MARTINEZ :1960 Visit Time:12/13/2018 Your Visit Summary Your Care Team Primary Provider: CHAD GATICA Secondary Provider: Your Diagnosis Altered mental status Altered mental status Hyperglycemia Medication reaction Medical Information You may obtain a copy of your Emergency Department visit from Medical Records by calling the hospital phone number listed above and asking to be directed to the Medical Records Department. If you had special tests, such as EKG???s or X-rays, the interpretation of your tests given to you by the Emergency Department Physician is a preliminary report. Some fractures and illnesses fail to show up on preliminary tests. These will be reviewed again and we will call you if there are any new suggestions. If your symptoms continue notify your physician. After you leave, you should follow the instructions provided. What to do next Follow-Up Appointments Follow Up with [facility] When Within 2 to 3 days Where: [address] [phone]- Business (1) Allergies No Known Medication Allergies Immunizations This Visit No Immunizations Found Medications The home medications listed are only as accurate as the information you provided. Please continue taking all of your medications prescribed by your Primary Care Provider unless specifically told to change or discontinue the medication. Please direct any questions regarding your home medications to your Primary Care Provider. Take your medications faithfully. Do NOT skip medication. Do NOT stop taking medications without the direction of a physician. Carry a list of your medications with you at all times, and take this medication list with you to your first follow up visit. Report any side effects. Avoid herbal remedies unless discussed with your physician. As part of your treatment plan, your physician may have prescribed a limited course of a controlled substance. This medication may be given to help people with moderate or severe pain or for other medical conditions, but there are risks involved with treatment. Common side effects may include nausea, constipation, drowsiness, sweating, itching, dry mouth, and rash. More serious side effects may include cognitive and motor impairment, like problems with thinking, concentrating, alertness, and movement (e.g. slowed reflexes), and driving and operating heavy machinery can be dangerous. It is important for you to talk to your physician if you have these side effects or questions. These controlled substances can produce physical dependence and be habit-forming if taken for an extended period of time, which means that the body has gotten used to them and may experience withdrawal symptoms if they are abruptly stopped. Withdrawal symptoms can include runny nose, sweating, goose bumps, diarrhea, abdominal cramping, rapid heartbeat, difficulty sleeping, and nervousness. Please dispose of unused and medications per pharmacy guidance. Test Results Laboratory or Other Results This Visit (last charted value for your 12/13/2018 visit) Hematology 12/13/2018 11:23 AM WBC: 6.7 K/uL -- Normal range between ( 3.9 and 10.0 ) RBC: 4.34 Million/uL -- Normal range between ( 3.93 and 5.22 ) Hct: 40.2 % -- Normal range between ( 34.1 and 44.9 ) Hgb: 13.5 Gram/dL -- Normal range between ( 11.2 and 15.7 ) Platelet Count: 210 K/uL -- Normal range between ( 163 and 369 ) MCH: 31.1 pg -- Normal range between ( 25.6 and 32.2 ) MCHC: 33.6 Gram/dL -- Normal range between ( 32.3 and 36.5 ) MCV: 92.6 fL -- Normal range between ( 79.0 and 94.8 ) Slide Review: No Eos %: 3.6 % -- Normal range between ( 1.0 and 7.0 ) [place] #: 0.60 K/uL -- Normal range between ( 0.24 and 0.82 ) Eos #: 0.24 K/uL -- Normal range between ( 0.04 and 0.54 ) [place] %: 9.0 % -- Normal range between ( 4.7 and 12.5 ) Baso %: 0.6 % -- Normal range between ( 0.0 and 1.0 ) Baso #: 0.04 K/uL -- Normal range between ( 0.01 and 0.08 ) RDW: 12.7 % -- Normal range between ( 11.6 and 14.4 ) Neut %: 51.3 % -- Normal range between ( 34.0 and 71.0 ) Neut #: 3.43 K/uL -- Normal range between ( 1.56 and 6.13 ) Lymph %: 35.4 % -- Normal range between ( 19.3 and 53.0 ) Lymph #: 2.37 K/uL -- Normal range between ( 1.18 and 3.74 ) MPV: 10.3 fL -- Normal range between ( 9.4 and 12.4 ) IG#: 0 x10(3)/uL IG%: 0 % -- Normal range between ( 0 and 1 ) Urinalysis 12/13/2018 11:23 AM Ur RBC: None Seen Urine Nitrite: Negative Urine Leukocyte Esterase: Negative Urine Appearance: Clear Urine Glucose Dipstick: >=1000 Urine Blood Dipstick: Negative Urine Type: U Cath Urine Urobilinogen Dipstick: 0.2 EU/dL -- Normal range between ( 0.2 and 1.0 ) Urine Protein Dipstick: Negative Ur Bacteria: None Seen Ur Squamous Epithelial Cells: 0-2 /HPF Urine Color: Yellow Ur WBC: 0-2 /HPF Urine Ketones Dipstick: Trace Urine pH Dipstick: 5.5 -- Normal range between ( 6.0 and 8.0 ) Urine Bilirubin Dipstick: Negative Urine Specific [place]: 1.038 -- Normal range between ( 1.005 and 1.030 ) General Chemistry 12/13/2018 1:31 PM Glucose POC2: 363 mg/dL -- Normal range between ( 70 and 110 ) 12/13/2018 11:50 AM Device Comment 1: Notified MD CALLOWAY 12/13/2018 11:23 AM Creatinine Level: 0.84 mg/dL -- Normal range between ( 0.55 and 1.02 ) Sodium Level: 136 mmol/L -- Normal range between ( 136 and 146 ) Potassium Level: 4.4 mmol/L -- Normal range between ( 3.5 and 5.1 ) Chloride Level: 102 mmol/L -- Normal range between ( 102 and 112 ) Carbon Dioxide Level: 27 mmol/L -- Normal range between ( 21 and 32 ) Anion Gap: 11 -- Normal range between ( 9 and 20 ) Bilirubin Total: 0.5 mg/dL -- Normal range between ( 0.2 and 1.3 ) A/G Ratio: 0.8 -- Normal range between ( 1.1 and 2.5 ) ALT: 50 Units/Liter -- Normal range between ( 12 and 78 ) AST: 54 Units/Liter -- Normal range between ( 5 and 37 ) Globulin: 4.0 Gram/dL -- Normal range between ( 1.5 and 4.5 ) Alk Phos: 139 Units/Liter -- Normal range between ( 27 and 136 ) Ammonia Level: 36.0 uMol/L -- Normal range between ( 11.0 and 32.0 ) Bun/Creatinine: 14.3 -- Normal range between ( 8.0 and 20.0 ) Calcium Level: 8.9 mg/dL -- Normal range between ( 8.5 and 10.1 ) eGFR : >60 mL/min/1.73m2 eGFR NonAfrican: >60 mL/min/1.73m2 Glucose Level: 458 mg/dL -- Normal range between ( 74 and 106 ) Blood Urea Nitrogen: 12 mg/dL -- Normal range between ( 7 and 22 ) Protein Total: 7.1 Gram/dL -- Normal range between ( 6.4 and 8.2 ) Albumin Level: 3.1 Gram/dL -- Normal range between ( 3.4 and 5.0 ) Cardiac Specific Markers 12/13/2018 11:23 AM Troponin I Ultra: <0.015 ng/mL -- Normal range between ( 0.015 and 0.045 ) Toxicology 12/13/2018 11:23 AM Alcohol: <3 mg/dL UDS Amp: Negative UDS [place]: Negative UDS Benzo: Negative UDS Vicky: Negative UDS Meth: Negative UDS Opi: Negative UDS Oxy: Negative UDS PCP: Negative UDS TCA: Positive UDS THC: Negative Buprenorphine Screen, Urine: Negative Meperidine Screen, Urine: Negative Tramadol Screen, Urine: Negative Heroin Metab (6AM) by LC-MS/MS, Urine: Negative Carisoprodol Screen, Urine: Negative SpGravity, Urine: 1.011 Propoxyphene, Urine: Negative UDS pH: 5.8 Fentanyl, Urine: Negative UDS Creatinine, Toxicology: 66.1 mg/dL Computed Tomography 12/13/2018 12:[address] Head WO: CT Head WO Diagnostic Radiology 12/13/2018 11:25 AM CR Chest 1 Vw Portable: CR Chest 1 Vw Portable Education Materials Confusion Confusion is the inability to think with your usual speed or clarity. Confusion may come on quickly or slowly over time. How quickly the confusion comes on depends on the cause. Confusion can be due to any number of causes. What are the causes? Concussion, head injury, or head trauma. ??? Seizures. ??? Stroke. ??? Fever. ??? Brain tumor. ??? Age related decreased brain function (dementia). ??? Heightened emotional states like rage or terror. ??? Mental illness in which the person loses the ability to determine what is real and what is not (hallucinations). ??? Infections such as a urinary tract infection (UTI). ??? Toxic effects from alcohol, drugs, or prescription medicines. ??? Dehydration and an imbalance of salts in the body (electrolytes). ??? Lack of sleep. ??? Low blood sugar (diabetes). ??? Low levels of oxygen from conditions such as chronic lung disorders. ??? Drug interactions or other medicine side effects. ??? Nutritional deficiencies, especially niacin, thiamine, vitamin C, or vitamin B. ??? Sudden drop in body temperature (hypothermia). ??? Change in routine, such as when traveling or hospitalized. What are the signs or symptoms? People often describe their thinking as cloudy or unclear when they are confused. Confusion can also include feeling disoriented. That means you are unaware of where or who you are. You may also not know what the date or time is. If confused, you may also have difficulty paying attention, remembering, and making decisions. Some people also act aggressively when they are confused. How is this diagnosed? The medical evaluation of confusion may include: ??? Blood and urine tests. ??? X-rays. ??? Brain and nervous system tests. ??? Analyzing your brain waves (electroencephalogram or EEG). ??? Magnetic resonance imaging (MRI) of your head. ??? Computed tomography (CT) scan of your head. ??? Mental status tests in which your health care provider may ask many questions. Some of these questions may seem silly or strange, but they are a very important test to help diagnose and treat confusion. How is this treated? An admission to the hospital may not be needed, but a person with confusion should not be left alone. Stay with a family member or friend until the confusion clears. Avoid alcohol, pain relievers, or sedative drugs until you have fully recovered. Do not drive until directed by your health care provider. Follow these instructions at home: What family and friends can do: ??? To find out if someone is confused, ask the person to state his or her name, age, and the date. If the person is unsure or answers incorrectly, he or she is confused. ??? Always introduce yourself, no matter how well the person knows you. ??? Often remind the person of his or her location. ??? Place a calendar and clock near the confused person. ??? Help the person with his or her medicines. You may want to use a pill box, an alarm as a reminder, or give the person each dose as prescribed. ??? Talk about current events and plans for the day. ??? Try to keep the environment calm, quiet, and peaceful. ??? Make sure the person keeps follow-up visits with his or her health care provider. How is this prevented? Ways to prevent confusion: ??? Avoid alcohol. ??? Eat a balanced diet. ??? Get enough sleep. ??? Take medicine only as directed by your health care provider. ??? Do not become isolated. Spend time with other people and make plans for your days. ??? Keep careful watch on your blood sugar levels if you are diabetic. Get help right away if: ??? You develop severe headaches, repeated vomiting, seizures, blackouts, or slurred speech. ??? There is increasing confusion, weakness, numbness, restlessness, or personality changes. ??? You develop a loss of balance, have marked dizziness, feel uncoordinated, or fall. ??? You have delusions, hallucinations, or develop severe anxiety. ??? Your family members think you need to be rechecked. This information is not intended to replace advice given to you by your health care provider. Make sure you discuss any questions you have with your health care provider. Document Released: 03/23/2005 Document Revised: 09/02/2016 Document Reviewed: 03/21/2014 [employer] Patient Education ?? 2019 [employer] Hyperglycemia Hyperglycemia occurs when the level of sugar (glucose) in the blood is too high. Glucose is a type of sugar that provides the body's main source of energy. Certain hormones (insulin and glucagon) control the level of glucose in the blood. Insulin lowers blood glucose, and glucagon increases blood glucose. Hyperglycemia can result from having too little insulin in the bloodstream, or from the body not responding normally to insulin. Hyperglycemia occurs most often in people who have diabetes (diabetes mellitus), but it can happen in people who do not have diabetes. It can develop quickly, and it can be life-threatening if it causes you to become severely dehydrated (diabetic ketoacidosis or hyperglycemic hyperosmolar state). Severe hyperglycemia is a medical emergency. What are the causes? If you have diabetes, hyperglycemia may be caused by: ??? Diabetes medicine. ??? Medicines that increase blood glucose or affect your diabetes control. ??? Not eating enough, or not eating often enough. ??? Changes in physical activity level. ??? Being sick or having an infection. If you have prediabetes or undiagnosed diabetes: ??? Hyperglycemia may be caused by those conditions. If you do not have diabetes, hyperglycemia may be caused by: ??? Certain medicines, including steroid medicines, beta-blockers, epinephrine, and thiazide diuretics. ??? Stress. ??? Serious illness. ??? Surgery. ??? Diseases of the pancreas. ??? Infection. What increases the risk? Hyperglycemia is more likely to develop in people who have risk factors for diabetes, such as: ??? Having a family member with diabetes. ??? Having a gene for type 1 diabetes that is passed from parent to child (inherited). ??? Living in an area with cold weather conditions. ??? Exposure to certain viruses. ??? Certain conditions in which the body's disease-fighting (immune) system attacks itself (autoimmune disorders). ??? Being overweight or obese. ??? Having an inactive (sedentary) lifestyle. ??? Having been diagnosed with insulin resistance. ??? Having a history of prediabetes, gestational diabetes, or polycystic ovarian syndrome (PCOS). ??? Being of Qatari-Ivorian, -Qatari, /, or / descent. What are the signs or symptoms? Hyperglycemia may not cause any symptoms. If you do have symptoms, they may include early warning signs, such as: ??? Increased thirst. ??? Hunger. ??? Feeling very tired. ??? Needing to urinate more often than usual. ??? Blurry vision. Other symptoms may develop if hyperglycemia gets worse, such as: ??? Dry mouth. ??? Loss of appetite. ??? Fruity-smelling breath. ??? Weakness. ??? Unexpected or rapid weight gain or weight loss. ??? Tingling or numbness in the hands or feet. ??? Headache. ??? Skin that does not quickly return to normal after being lightly pinched and released (poor skin turgor). ??? Abdominal pain. ??? Cuts or bruises that are slow to heal. How is this diagnosed? Hyperglycemia is diagnosed with a blood test to measure your blood glucose level. This blood test is usually done while you are having symptoms. Your health care provider may also do a physical exam and review your medical history. You may have more tests to determine the cause of your hyperglycemia, such as: ??? A fasting blood glucose (FBG) test. You will not be allowed to eat (you will fast) for at least 8 hours before a blood sample is taken. ??? An A1c (hemoglobin A1c) blood test. This provides information about blood glucose control over the previous 2???3 months. ??? An oral glucose tolerance test (OGTT). This measures your blood glucose at two times: ? After fasting. This is your baseline blood glucose level. ? Two hours after drinking a beverage that contains glucose. How is this treated? Treatment depends on the cause of your hyperglycemia. Treatment may include: ??? Taking medicine to regulate your blood glucose levels. If you take insulin or other diabetes medicines, your medicine or dosage may be adjusted. ??? Lifestyle changes, such as exercising more, eating healthier foods, or losing weight. ??? Treating an illness or infection, if this caused your hyperglycemia. ??? Checking your blood glucose more often. ??? Stopping or reducing steroid medicines, if these caused your hyperglycemia. If your hyperglycemia becomes severe and it results in hyperglycemic hyperosmolar state, you must be hospitalized and given IV fluids. Follow these instructions at home: General instructions ??? Take [id number] and prescription medicines only as told by your health care provider. ??? Do not use any products that contain nicotine or tobacco, such as cigarettes and e-cigarettes. If you need help quitting, ask your health care provider. ??? Limit alcohol intake to no more than 1 drink per day for non women and 2 drinks per day for men. One drink equals 12 oz of beer, 5 oz of wine, or 1?? oz of hard liquor. ??? Learn to manage stress. If you need help with this, ask your health care provider. ??? Keep all follow-up visits as told by your health care provider. This is important. Eating and drinking ??? Maintain a healthy weight. ??? Exercise regularly, as directed by your health care provider. ??? Stay hydrated, especially when you exercise, get sick, or spend time in hot temperatures. ??? Eat healthy foods, such as: ? Lean proteins. ? Complex carbohydrates. ? Fresh fruits and vegetables. ? Low-fat dairy products. ? Healthy fats. ??? Drink enough fluid to keep your urine clear or pale yellow. If you have diabetes: ??? Make sure you know the symptoms of hyperglycemia. ??? Follow your diabetes management plan, as told by your health care provider. Make sure you: ? Take your insulin and medicines as directed. ? Follow your exercise plan. ? Follow your meal plan. Eat on time, and do not skip meals. ? Check your blood glucose as often as directed. Make sure to check your blood glucose before and after exercise. If you exercise longer or in a different way than usual, check your blood glucose more often. ? Follow your sick day plan whenever you cannot eat or drink normally. Make this plan in advance with your health care provider. ??? Share your diabetes management plan with people in your workplace, school, and household. ??? Check your urine for ketones when you are ill and as told by your health care provider. ??? Carry a medical alert card or wear medical alert jewelry. Contact a health care provider if: ??? Your blood glucose is at or above 240 mg/dL (13.3 mmol/L) for 2 days in a row. ??? You have problems keeping your blood glucose in your target range. ??? You have frequent episodes of hyperglycemia. Get help right away if: ??? You have difficulty breathing. ??? You have a change in how you think, feel, or act (mental status). ??? You have nausea or vomiting that does not go away. These symptoms may represent a serious problem that is an emergency. Do not wait to see if the symptoms will go away. Get medical help right away. Call your local emergency services (911 in the [place] Do not drive yourself to the hospital. Summary ??? Hyperglycemia occurs when the level of sugar (glucose) in the blood is too high. ??? Hyperglycemia is diagnosed with a blood test to measure your blood glucose level. This blood test is usually done while you are having symptoms. Your health care provider may also do a physical exam and review your medical history. ??? If you have diabetes, follow your diabetes management plan as told by your health care provider. ??? Contact your health care provider if you have problems keeping your blood glucose in your target range. This information is not intended to replace advice given to you by your health care provider. Make sure you discuss any questions you have with your health care provider. Document Released: 08/09/2001 Document Revised: 10/31/2016 Document Reviewed: 10/31/2016 [employer] Patient Education ?? 2019 [employer]. Emergency Awareness and Preventative Care STROKE is an EMERGENCY Every Minute Counts Act FAST and Check for these signs: FACE Does the face look uneven? ARM Does one arm drift down? SPEECH Does their speech sound strange? TIME Call at any sign of stroke Stroke Risk Factors Atrial Fibrillation (irregular heartbeat) Diabetes Family history of stroke Heart Disease Heavy alcohol use High Blood Pressure High Cholesterol Physical inactivity and obesity Smoking Cigarette Smoking The facts are clear, cigarette smoking will shorten your life. Smoking can cause many illnesses along the way. As a healthcare provider, we recommend that you stop smoking. Assistance with quitting is available by contacting 7-608-HNVENOW. This is a free resource providing counseling, support, and referral. Or you may contact your personal physician. [employer] Suicide Prevention Lifeline: The National Suicide Prevention Lifeline is a national network of local crisis centers that provides free and confidential emotional support to people in suicidal crisis or emotional distress 24 hours a day, 7 days a week. Don't Wait! Stop a Heart Attack Before it Starts What is a heart attack? A heart attack is damage or to a part of the heart from severely decreased or lack of blood flow to the heart. Over time, arteries can become narrow from the buildup of fat and cholesterol, which is called plaque. The plaque can rupture causing a blood clot to form. When the blood clot forms, the artery can become severely narrowed or completely blocked, causing a heart attack. Heart attack is the leading cause of in the [place]. 85% of muscle damage occurs within the first 2 hours. Delay in the recognition of heart attack symptoms increases the chances of . Know the early symptoms of a heart attack: Nausea Feeling of fullness in chest Jaw Pain Pain that travels down one or both arms Fatigue/being tired Anxiety Back Pain Chest pressure, squeezing, or discomfort Shortness of breath Sweating, or a cold sweat Feeling of impending doom There are unusual signs of a heart attack, too! Women, the elderly, and diabetics may present with atypical symptoms: Fainting/dizziness Weakness Confusion Risk Factors for a Heart Attack Some heart disease risk factors, such as age and family history, cannot be changed. Others, like smoking and lack of exercise, can be changed. Smoking High Cholesterol High Blood Pressure Family History Obesity Age Gender (Males are at higher risk) Lack of Exercise Diabetes Diet Stress Excessive Alcohol Intake If you or someone you know is experiencing the signs and symptoms of a heart attack, DON???T DELAY. Call immediately and seek help. If someone collapses, perform CPR! Do not attempt to drive if you are having symptoms of heart attack. Hands-Only CPR Why Hands-Only CPR? Hands-Only CPR has been shown to be as effective as conventional CPR for cardiac arrests that occur outside of a hospital. Survival depends on immediately receiving CPR from someone nearby. How do you perform Hands-Only CPR? There are two easy steps: Call if you see a teen or adult collapse Push hard and fast in the center of the chest at a beat of 100 beats per minute. Save a life! 4 WAYS TO GET AHEAD OF SEPSIS SEPSIS is a MEDICAL EMERGENCY. Time matters! Infections put you and your family at risk for a life-threatening condition called sepsis. Sepsis is the body's extreme response to an infection. It is life-threatening, and without timely treatment, sepsis can rapidly lead to tissue damage, organ failure, and . Sepsis happens when an infection you already have-in your skin, lungs, urinary tract or somewhere else-triggers a chain reaction throughout your body. 1 PREVENT INFECTIONS Take good care of chronic conditions. Talk to your doctor about getting the recommended vaccines. 2 PRACTICE GOOD HYGIENE Wash your hands frequently. Keep cuts or open sores clean and covered until they are healed. 3 KNOW THE SYMPTOMS Confusion or disorientation Shortness of breath High heart rate Fever, shivering, or feeling very cold Extreme pain or discomfort Clammy or sweaty skin 4 ACT FAST Get medical care IMMEDIATELY if you suspect sepsis or if you have an infection that is not getting better or is getting worse. To learn more about sepsis and how to prevent infections, visit www.cdc.gov/sepsis. The examination and treatment you have received in the Emergency Department has been done to provide an appropriate evaluation and stabilizing treatment on an emergency basis only. Given the limited resources, it is not meant to be a substitute for complete medical care. The follow-up doctor you named will receive a copy of your records and all test reports. IT IS IMPORTANT THAT YOU SCHEDULE A FOLLOW-UP APPOINTMENT AND ARE RE-EVALUATED. You should report any new complaints, symptoms, or remaining problems at that time. IT IS IMPOSSIBLE FOR THE EMERGENCY DEPARTMENT TO RECOGNIZE AND TREAT ALL ELEMENTS OF INJURY OR ILLNESS IN A SINGLE VISIT. If you have been referred to a specialist physician, it means that we believe you may have a condition that requires the expertise of a specialist. These physicians work in partnership with the hospital and have agreed to see referred patients in their office for further evaluation. KEEP IN MIND THAT THE SPECIALIST HAS HIS/HER OWN OFFICE POLICIES WHICH MAY REQUIRE PROPER INSURANCE OR PAYMENT UP FRONT BEFORE THE SPECIALIST WILL SEE YOU. It is your responsibility to call the specialist physician to make an appointment. We do not have the ability to refer patients to specialists/physicians that work with specific insurance companies. Please be advised that all financial charges or billing practices are determined by that practice, not the hospital. If your insurance company requires that you see a specialist from their approved list, it is your responsibility to contact your insurance company to make those arrangements. It is also your responsibility to follow any other requirements of your insurance company necessary to obtain coverage for claims submitted. We will bill your insurance; however, you are responsible today for any co-pay amounts. You will receive a separate bill for any services you may have received including: emergency, radiology, or pathology physicians. Patient Name:LINH MARTINEZ I have received this information and was given the opportunity to ask questions. Patient/Keycase Assembler Name: Patient/Keycase Assembler Signature: Relationship to Patient: Clinician/Hospital Keycase Assembler Signature: Please Provide a Telephone Number Where You Can Be Reached: Is it Permissible To Leave a Message? Date: Electronically signed by [facility] Conversion Seed Specialist Tiffanie at 07/20/2022 11:13 AM CDT documented in this encounter Plan of Treatment Not on file documented as of this encounter Visit Diagnoses Not on filedocumented in this encounter
--- OUTSIDE RECORDS SUMMARY | 2024-08-05 15:55 | XMS_ITS | Encounter Summary ---
Author Organization [email or web address] Address [address] [place] [address] Care Team Providers Care Senior Electrical Engineer Name Role Phone Unavailable Primary Care Provider Unavailabl e Encounter Details Date Type Department Care Team (Late st Contact Info) Description 12/13/2018 Transcribed Document [facility] [address] [place] [address] Provider, Kell Brar MD Social History Tobacco Use Types Packs/Day Years Used Date Smoking Tobacco: Never Assessed Comments Unknown Sex and Gender Information Value Date Recorded Sex Assigned at Female 08/26/2021 5:31 PM CDT Legal Sex Female 6:47 PM CDT Gender Identity Female 08/26/2021 5:31 PM CDT Sexual Orientation Not on file documented as of this encounter Miscellaneous Notes * Tiffanie Conversion Note - [facility] ProviderMD - 12/13/2018 4:05 PM EDT documented in this encounter Plan of Treatment Not on file documented as of this encounter Visit Diagnoses Not on filedocumented in this encounter
[2024-08-05 16:26] LABS: Bacteria,Urine 3+ /lpf; Squamous Epithelial Cell,Urine Occasional #/hpf (0-5); WBC,Urine 50-100 #/hpf (0-3)
== END 2024-08-05 23:59 | disposition home or self-care (01) ==
LOC: LAB.DROPOF 15:39
PROVIDERS: PCP Urology; Visit Provider Urology
DX: R31.9 Hematuria, unspecified (principal)
CPT/HCPCS: 81001; 87086; 87088